=== PATIENT | female | born 1940 | race Caucasian/White ===

== ENCOUNTER 2017-10-27 13:25 | Outpatient (CLI) | payer MEDICARE, OTHER ==
--- NOTE | 2017-10-30 14:29 | MMO ---
BILATERAL SCREENING MAMMOGRAM: INDICATION: Annual exam. COMPARISON: Prior study dated 06/01/15. FINDINGS: The interpretation of this examination was assisted with computer-aided detection. There are scattered fibroglandular elements bilaterally. There are vascular benign-appearing calcifications bilaterally. No new suspicious mass, cluster of microcalcifications, or area of architectural distortion is eviden t. IMPRESSION: BI-RADS category 2 - benign. Recommend routine annual mammographic screening. BIRADS 2: Benign Finding(s) Routine annual screening mammography (for women over age 40) POS: [facility]
== END 2017-10-27 13:26 | disposition home or self-care (01) ==
LOC: SCSMAMMO 13:25
PROVIDERS: ATTEND Obstetrics & Gynecology
DX: Z12.31 Encounter for screening mammogram for malignant neoplasm of breast (principal)
CPT/HCPCS: 77067

== ENCOUNTER 2018-02-12 15:36 | Inpatient (IN) | payer MEDICARE, OTHER ==
[2018-02-12 16:34] LABS: #Eosinphils 0.1 thou/uL (0.0-0.7); #Lymphocytes 1.9 thou/uL (1.20-3.40); #Monocytes 0.6 thou/uL (0.11-0.59); #Neutrophils 3.9 thou/uL (1.40-6.50); %Basophils 0.6 % (0.0-1.0); %Eosinophils 1.8 % (0.0-10.0); %Lymphocytes 28.8 % (21.0-51.0); %Monocytes 8.4 % (0.0-10.0); %Neutrophils 60.5 % (42.0-75.0); Hemoglobin 13.2 g/dL (12.0-16.0); Mean Corpuscular HGB CONC 32.8 g/dL (32.0-36.0); Mean Corpuscular Volume 91.6 fL (78.0-98.0); Mean Platelet Volume 6.2 fL (7.4-10.4); Platelet Count 386 thou/uL (130-400); RBC Distribution Width 11.8 % (11.5-14.5); White Blood Cell (WBC) Count 6.5 thou/uL (4.8-10.8)
[2018-02-12 16:53] LABS: ALT (SGPT) 9 U/L (8-55); AST (SGOT) 15 U/L (5-34); Albumin 4.1 g/dL (3.4-4.8); Alkaline Phosphatase 145 U/L (40-150); Anion Gap 12 mmol/L (10-20); BUN (Urea Nitrogen) 14 mg/dL (9.8-20.1); Bilirubin, Total 0.4 mg/dL (0.2-1.2); CRP (Inflammatory) Less than 0.50 mg/dL (= or < 0.5); Calc. Creatinine Clearance 0 mL/min (70-130); Calcium 9.6 mg/dL (7.8-10.44); Carbon Dioxide 27 mmol/L (23-31); Chloride 99 mmol/L (98-107); Estimated GFR-MDRD 63; Globulin 3.4 g/dL (2.4-3.5); Glucose 100 mg/dL (83-110); Potassium 3.9 mmol/L (3.5-5.1); Protein, Total 7.5 g/dL (6.0-8.3); Sodium 134 mmol/L (136-145)
[2018-02-12] MEDS ORDERED: hydrALAZINE 20 MG/ML VIAL ONE (20:09)
[2018-02-12] MEDS ORDERED: Ondansetron ODT 4 MG TAB PO PRN (21:02)
[2018-02-12] MEDS ORDERED: Acetaminophen 325 MG TAB PO PRN (21:02)
[2018-02-12] MEDS ORDERED: Ondansetron PF 4 MG/2 ML Vial IVP PRN (21:02)
[2018-02-12] MEDS ORDERED: Senokot S 8.6-50 MG TAB PO PRN (21:02)
[2018-02-12 22:25] VITALS: BMI 24.5
[2018-02-12] MEDS ORDERED: Vancomycin HCl 1 GM in Premix Bag 1 BAG IVPB SCH (22:45)
[2018-02-13] MEDS: traMADol HCl 50 MG TAB PO PRN ×4 (00:55→21:31)
[2018-02-13 05:28] LABS: #Eosinphils 0.2 thou/uL (0.0-0.7); #Lymphocytes 1.8 thou/uL (1.20-3.40); #Monocytes 0.5 thou/uL (0.11-0.59); #Neutrophils 2.3 thou/uL (1.40-6.50); %Basophils 0.6 % (0.0-1.0); %Eosinophils 3.4 % (0.0-10.0); %Lymphocytes 37.4 % (21.0-51.0); %Neutrophils 47.6 % (42.0-75.0); Hemoglobin 12.3 g/dL (12.0-16.0); Mean Corpuscular HGB CONC 33.2 g/dL (32.0-36.0); Mean Corpuscular Volume 90.6 fL (78.0-98.0); Mean Platelet Volume 6.2 fL (7.4-10.4); Platelet Count 319 thou/uL (130-400); RBC Distribution Width 11.6 % (11.5-14.5); Red Blood Cell (RBC) Count 4.08 mill/uL (4.20-5.40); White Blood Cell (WBC) Count 4.9 thou/uL (4.8-10.8)
[2018-02-13 05:43] LABS: Anion Gap 11 mmol/L (10-20); BUN (Urea Nitrogen) 10 mg/dL (9.8-20.1); Calc. Creatinine Clearance 81 mL/min (70-130); Calcium 9.4 mg/dL (7.8-10.44); Carbon Dioxide 26 mmol/L (23-31); Chloride 103 mmol/L (98-107); Estimated GFR-MDRD Greater than 90; Glucose 104 mg/dL (83-110); Potassium 3.6 mmol/L (3.5-5.1); Sodium 136 mmol/L (136-145)
--- NOTE | 2018-02-13 07:15 | HP ---
CHIEF COMPLAINT: Pelvic pain. HISTORY OF PRESENT ILLNESS: This is a 78-year-old female with past medical history of hip osteomyelitis, hyperlipidemia, presenting with a chief complaint of pelvic pain. Per the patient, she was seen by Dr. Fernandez and the patient was referred to get an MRI at the sacral region for evaluation of the osteomyelitis. The patient states that she has been having this for the past one and a half weeks prior to this admission and she went for the MRI, which was done on 02/10/2018 and the patient was told to come to our ED after the MRI was reviewed by Dr. Fernandez. The patient said that Dr. Fernandez's clinic has a copy of the MRI and it would be great if we can be able to call Dr. Fernandez's office to get the final report of the MRI if is indeed acute or chronic osteomyelitis. The patient also reports she had surgery to drain and remove abscesses at the base of her vagina in July by Dr. Mehran Reagan on 2017, therefore, the patient had a vaginal abscess around July and then it was drained around 01/09/2018. The patient reports that she has been having urinary symptoms and has been given antibiotics, specifically nitrofurantoin to help with her UTI, which has been diagnosed. The patient has been very compliant with her medications and the patient states that she takes tramadol for pain. Of note, the patient had a right hip replacement in the past and the patient states that she suffered a Staph infection in the joint around that time and had to receive antibiotics. The patient currently denies any fever, chills, palpitation, chest pain, abdominal pain, nausea, vomiting; however, the patient admits to having some subjective fevers and also sacral and pelvic pain. REVIEW OF SYSTEMS: Positive for pelvic and sacral pain, otherwise as documented in the HPI. All other systems were reviewed and are negative. PAST MEDICAL HISTORY: The patient has hypercholesterol. PAST SURGICAL HISTORY: Anal fissure, right hip replacement. PSYCHIATRIC HISTORY: No previous psychiatric history. FAMILY HISTORY: reviewed and noncontributory SOCIAL HISTORY: Patient denies using illicit drug or smoking history. The patient says that she is an occasional drinker. ALLERGIES: Patient is allergic to AMOXICILLIN. CURRENT MEDICATIONS: The patient is on, 1. Atorvastatin 10 mg. 2. Calcium. 3. Tramadol 50 mg. 4. Nitrofurantoin. PHYSICAL EXAMINATION: VITAL SIGNS: The patient's blood pressure is 121/68, heart rate of 75, respiratory rate of 17, temperature of 97.7, O2 saturation of 97%. GENERAL APPEARANCE: The patient is lying in bed, does not appear to be in any acute distress. The patient is speaking in full sentences. HEENT: Normocephalic, atraumatic. Pupils are equally round and react to light. Extraocular movements are intact. No scleral icterus. Mucous membranes are moist. NECK: Trachea is midline. No JVD. Full range of motion, supple. LUNGS: Clear to auscultation bilaterally. No wheeze, no rales, no rhonchi is appreciated. CARDIOVASCULAR: Positive S1, S2, regular rate and rhythm. No murmurs, no gallops or rubs appreciated. ABDOMEN: Soft, nontender, nondistended, obese abdomen, positive bowel sounds in all quadrants. No masses palpated. BACK: The patient has some tenderness at the pelvic region and sacral area. No CVA tenderness. EXTREMITIES: The patient has 5/5 upper extremities and 5/5 lower extremities, good pulses bilaterally in the upper and lower extremities. NEUROLOGIC: Cranial nerves II through XII grossly intact. No neurologic deficits noted. SKIN: Referred to description of a sacral area from a nursing note. As of this point, the patient states that there is severe pain and cannot allow us to move or to observe the sacrum at this time. PSYCHIATRIC: The patient is alert, oriented x3, normal affect, very pleasant. LABORATORY DATA: WBC 6.5, hemoglobin 13.2, hematocrit is 40.3, platelet count is 384. ESR is 9. Sodium is 134, potassium is 3.9, chloride is 99, carbon dioxide of 27, BUN is 12, creatinine is 0.87. AST is 15, ALT is 9. ASSESSMENT AND PLAN: This is a 78-year-old female being admitted for: 1. Questionable osteomyelitis. The patient had an MRI done and MRI was ordered by Dr. Fernandez and today the patient received a phone call to come to the hospital after the MRI was reviewed by Dr. Fernandez, so the patient can be evaluated for chronic osteomyelitis. At this time, we will start the patient on vancomycin IV and we have consulted ID. We will follow up on the patient's MRI report and possibly treat the patient for osteomyelitis if indeed the patient's MRI result is positive for osteomyelitis. 2. History of hyperlipidemia. We will continue the patient on current management. 3. Urinary tract infection. We will continue the patient on her home medication of nitrofurantoin. 3. Deep venous thrombosis and gastrointestinal prophylaxis. MTDD
[2018-02-13] MEDS ORDERED: Artificial Tears 18 DROP/0.9 ML EA EYE PRN (07:50)
[2018-02-13] MEDS ORDERED: Diphenoxylate HCl/Atropine Tablet PO PRN (07:50)
[2018-02-13] MEDS ORDERED: Loratadine 10 MG TAB PO PRN (07:50)
[2018-02-13] MEDS ORDERED: hydrALAZINE 20 MG/ML VIAL SLOW IVP PRN (07:50)
[2018-02-13] MEDS ORDERED: Zolpidem Tartrate 5 MG TAB PO PRN (07:50)
[2018-02-13] MEDS ORDERED: Acetaminophen 500 MG TAB PO PRN (07:50)
[2018-02-13] MEDS ORDERED: Cepastat Lozenges 1 LOZ PO PRN (07:50)
[2018-02-13] MEDS ORDERED: HYDROcodone/Acetaminophen 5/325 mg Tablet PO PRN (07:50)
[2018-02-13] MEDS ORDERED: Sodium Chloride 0.65% Nasal 44 ML BOT EA NARE PRN (07:50)
[2018-02-13] MEDS ORDERED: cloNIDine 0.1 MG TAB PO PRN (07:50)
[2018-02-13] MEDS ORDERED: Diabetic Tussin 200 MG/10 ML UDCUP PO PRN (07:50)
[2018-02-13] MEDS ORDERED: Eucerin (Mineral Oil/Petrolatum,White) 30 gm Jar TOP PRN (07:50)
[2018-02-13] MEDS: Calcium Carbonate 500 MG TAB PO SCH (08:38)
[2018-02-13] MEDS: Aspirin 325 MG TAB PO SCH (08:38)
[2018-02-13] MEDS: Atorvastatin Calcium 20 MG TAB PO SCH (08:39)
[2018-02-13] MEDS: Saccharomyces boulardii 250 MG CAP PO SCH (08:39)
[2018-02-13] MEDS: Lactinex Tablet PO SCH (08:39)
[2018-02-13] MEDS: Polyethylene Glycol 3350 17 GM Packet PO SCH (08:40)
[2018-02-13] MEDS: Famotidine 20 MG TAB PO SCH ×2 (08:40→20:06)
[2018-02-13] MEDS: Calcium Carbonate + Vit D 1 TAB PO SCH (08:40)
[2018-02-13] MEDS: Nitrofurantoin Monohyd/M-Cryst 100 MG CAP PO SCH ×2 (08:40→20:06)
[2018-02-13] MEDS: Heparin 5,000 UNITS/ML VIAL SC SCH ×2 (08:41→20:08)
[2018-02-13] MEDS ORDERED: FLAXSEED OIL 1000 MG PO SCH (09:00)
[2018-02-13] MEDS ORDERED: Aspirin 325 MG TAB PO SCH (09:00)
[2018-02-13] MEDS ORDERED: FLAX SEED OIL 1000 MG PO SCH (09:00)
[2018-02-13] MEDS: Vancomycin HCl 750 MG in Sodium Chloride 0.9% 250 ML 250 ML IVPB SCH ×2 (11:04→22:53)
--- NOTE | 2018-02-13 11:09 | PDOC.PN ---
- Subjective Encounter Start Date: 02/13/18 Encounter Start Time: 07:30 -: old records requested/rev pt has muscle spasm in her right leg, has pain in her hip, no fever, she had MRI done at [facility] per pt - Objective Resuscitation Status: Resuscitation Status FULL:Full Resuscitation MAR Reviewed: Yes Vital Signs & Weight: Vital Signs (12 hours) Temp Pulse Resp BP Pulse Ox 02/13/18 07:21 97.8 F 68 16 176/78 H 96 02/13/18 04:25 97.8 F 64 16 133/69 95 02/13/18 00:35 97.7 F 72 15 158/77 H 95 Weight Weight 143 lb 4.807 oz I&O: 02/12/18 02/13/18 02/14/18 06:59 06:59 05:59 Intake Total 880 Balance 880 Result Diagrams: 02/13/18 04:50 02/13/18 04:50 Phys Exam - Physical Examination Constitutional: NAD HEENT: PERRLA, moist MMs, sclera anicteric Neck: no JVD, supple Respiratory: no wheezing, no rales, no rhonchi Cardiovascular: RRR, no significant murmur, no rub Gastrointestinal: soft, non-tender, no distention, positive bowel sounds Musculoskeletal: no edema, pulses present Neurological: non-focal, normal sensation, moves all 4 limbs Lymphatic: no nodes Psychiatric: normal affect, A&O x 3 Skin: no rash, normal turgor Dx/Plan (1) Pelvic pain Code(s): R10.2 - PELVIC AND PERINEAL PAIN Status: Acute (2) Dyslipidemia Code(s): E78.5 - HYPERLIPIDEMIA, UNSPECIFIED Status: Chronic (3) Osteomyelitis Code(s): M86.9 - OSTEOMYELITIS, UNSPECIFIED Status: Suspected - Plan cont current plan of care * ID consulted, for suspected osteomyelitis, she had MRI at [facility], unable to review, do not know what abnormality she had * currently started on empiric antibiotics * will repeat labs tomorrow * will add diazepam and flexeril for muscle spasm * medication reviewed as below * symptomatic treatment. Review of Systems - Review of Systems Constitutional: negative: fever, chills, sweats, weakness, malaise, other Eyes: negative: Pain, Vision Change, Conjunctivae Inflammation, Eyelid Inflammation, Redness, Other ENT: negative: Ear Pain, Ear Discharge, Nose Pain, Nose Discharge, Nose Congestion, Mouth Pain, Mouth Swelling, Throat Pain, Throat Swelling, Other Respiratory: negative: Cough, Dry, Shortness of Breath, Hemoptysis, SOB with Excertion, Pleuritic Pain, Sputum, Wheezing Cardiovascular: negative: chest pain, palpitations, orthopnea, paroxysmal nocturnal dyspnea, edema, light headedness, other Gastrointestinal: negative: Nausea, Vomiting, Abdominal Pain, Diarrhea, Constipation, Melena, Hematochezia, Other Genitourinary: negative: Dysuria, Frequency, Incontinence, Hematuria, Retention , Other Musculoskeletal: Leg Pain. negative: Neck Pain, Shoulder Pain, Arm Pain, Back Pain, Hand Pain, Foot Pain, Other Skin: negative: Rash, Lesions, [place], Bruising, Other - Medications/Allergies Allergies/Adverse Reactions: Allergies Allergy/AdvReac Type Severity Reaction Status Date / Time amoxicillin Allergy Severe TINGLING/PRICKLY Verified 02/12/18 22:18 FEELING/FELT AWEFUL Medications: Current Medications Acetaminophen (Tylenol) 650 mg PO Q4H PRN PRN Reason: Headache/Fever/Mild Pain (1-3) Hydrocodone Bitart/Acetaminophen ([place] 5/325) 1 tab PO Q4H PRN PRN Reason: Moderate Pain (4-6) Acidophilus (Floranex) 1 tab PO DAILY [facility] Last Admin: 02/13/18 08:39 Dose: 1 tab Artificial Tears (Tears Naturale) 2 drop EA EYE PRN PRN PRN Reason: Dry Eyes Aspirin (Aspirin) 325 mg PO DAILY [facility] Last Admin: 02/13/18 08:38 Dose: 325 mg Atorvastatin Calcium (Lipitor) 20 mg PO DAILY [facility] Last Admin: 02/13/18 08:39 Dose: 20 mg Bisacodyl (Dulcolax) 10 mg PO DAILYPRN PRN PRN Reason: Constipation Calcium Carbonate (Oscal-500) 500 mg PO DAILY [facility] Last Admin: 02/13/18 08:38 Dose: 500 mg Calcium/Vitamin D (Caltrate 600 + Vit D) 1 tab PO DAILY [facility] Last Admin: 02/13/18 08:40 Dose: 1 tab Clonidine (Catapres) 0.1 mg PO Q4H PRN PRN Reason: SBP > ____ Cyclobenzaprine HCl (Flexeril) 10 mg PO TID PRN PRN Reason: Muscle Spasm Diazepam (Valium) 5 mg PO BID [facility] Diphenoxylate HCl/Atropine (Lomotil) 2 tab PO ONE PRN PRN Reason: Diarrhea/Loose Stools Stop: 02/13/18 12:00 Famotidine (Pepcid) 20 mg PO BID [facility] Last Admin: 02/13/18 08:40 Dose: 20 mg Guaifenesin (Robitussin Sf) 200 mg PO Q4H PRN PRN Reason: Cough Heparin Sodium (Porcine) (Heparin) 5,000 units SC BID [facility] Last Admin: 02/13/18 08:41 Dose: 5,000 units Hydralazine HCl (Apresoline) 10 mg SLOW IVP Q4H PRN PRN Reason: SBP > 180 and HR < 70 Vancomycin HCl 750 mg/ Sodium (Chloride) 250 mls @ 250 mls/hr IVPB 1100,2300 [facility] Last Admin: 02/13/18 11:04 Dose: 250 mls Loratadine (Claritin) 10 mg PO DAILYPRN PRN PRN Reason: Sinus Symptoms Mineral Oil/White Petrolatum (Eucerin Cream) 0 gm TOP BIDPRN PRN PRN Reason: Dry Skin Miscellaneous Medication (Pharmacy To Dose) 1 each IVPB PRN PRN PRN Reason: Pharmacy to dose Nitrofurantoin Macrocrystals (Macrobid) 100 mg PO BID [facility] Last Admin: 02/13/18 08:40 Dose: 100 mg Ondansetron HCl (Zofran Odt) 4 mg PO Q6H PRN PRN Reason: Nausea/Vomiting Ondansetron HCl (Zofran) 4 mg IVP Q6H PRN PRN Reason: Nausea/Vomiting Polyethylene Glycol (Miralax) 17 gm PO DAILY [facility] Last Admin: 02/13/18 08:40 Dose: 17 gm Saccharomyces Boulardii (Florastor) 250 mg PO DAILY [facility] Last Admin: 02/13/18 08:39 Dose: 250 mg Senna/Docusate Sodium (Senokot S) 2 tab PO BIDPRN PRN PRN Reason: Constipation Sodium Chloride (Flush - Normal Saline) 10 ml IVF Q12HR PRN PRN Reason: Saline Flush Sodium Chloride (Flush - Normal Saline) 10 ml IVF PRN PRN PRN Reason: Saline Flush Sodium Chloride ([place] Nasal [place] 0.65%) 0 ml EA NARE QIDPRN PRN PRN Reason: Nasal Congestion Throat Lozenges (Cepastat Lozenges) 1 keya PO Q2H PRN PRN Reason: Sore Throat Tramadol HCl (Ultram) 50 mg PO Q4H PRN PRN Reason: Mild Pain 1-3 Last Admin: 02/13/18 00:55 Dose: 50 mg Tramadol HCl (Ultram) 50 mg PO Q6H PRN PRN Reason: Pain Last Admin: 02/13/18 08:41 Dose: 50 mg Zolpidem Tartrate (Ambien) 5 mg PO HSPRN PRN PRN Reason: Insomnia
[2018-02-13] MEDS: Cyclobenzaprine 10 MG TAB PO PRN ×2 (14:15→22:17)
[2018-02-13 17:50] LABS: Bilirubin Negative (Negative); Blood, Urine Trace (Negative); Clarity CLEAR (Clear); Glucose, Urine (Dipstick) Negative (Negative); Leukocyte Negative (Negative); Nitrite Negative (Negative); Protein, Urine (Dipstick) Negative (Neg-Trace); Specific Gravity, Urine 1.005 (1.002-1.036); Urobilinogen 0.2 mg/dL (0.2-1.0)
[2018-02-13 17:51] LABS: Bacteria/HPF None Seen HPF (None Seen); Hyaline Casts/LPF 0-3 HYALINE CAST LPF (0-3 Hyaline); Pathc Cast-AUWi Flag 0.29 (0-2.49); Squamous Epithelial None Seen HPF (0-3); WBC/HPF 0-3 HPF (0-3)
[2018-02-13] MEDS: Diazepam 5 MG TAB PO SCH (20:06)
[2018-02-13] MEDS: Bisacodyl 5 MG TAB PO PRN (21:35)
[2018-02-14 05:14] LABS: #Eosinphils 0.2 thou/uL (0.0-0.7); #Lymphocytes 1.8 thou/uL (1.20-3.40); #Monocytes 0.4 thou/uL (0.11-0.59); #Neutrophils 3.2 thou/uL (1.40-6.50); %Basophils 0.4 % (0.0-1.0); %Lymphocytes 31.9 % (21.0-51.0); %Monocytes 7.6 % (0.0-10.0); %Neutrophils 57.1 % (42.0-75.0); Hemoglobin 12.2 g/dL (12.0-16.0); Mean Corpuscular HGB CONC 32.3 g/dL (32.0-36.0); Mean Corpuscular Hemoglobin 29.3 pg (27.0-31.0); Mean Corpuscular Volume 90.7 fL (78.0-98.0); Mean Platelet Volume 6.2 fL (7.4-10.4); Platelet Count 311 thou/uL (130-400); RBC Distribution Width 11.8 % (11.5-14.5); Red Blood Cell (RBC) Count 4.16 mill/uL (4.20-5.40); White Blood Cell (WBC) Count 5.5 thou/uL (4.8-10.8)
[2018-02-14 05:30] LABS: Anion Gap 11 mmol/L (10-20); BUN (Urea Nitrogen) 9 mg/dL (9.8-20.1); CRP (Inflammatory) Less than 0.50 mg/dL (= or < 0.5); Calc. Creatinine Clearance 79 mL/min (70-130); Calcium 9.2 mg/dL (7.8-10.44); Carbon Dioxide 24 mmol/L (23-31); Chloride 103 mmol/L (98-107); Estimated GFR-MDRD Greater than 90; Glucose 98 mg/dL (83-110); Potassium 3.5 mmol/L (3.5-5.1); Sodium 134 mmol/L (136-145)
[2018-02-14] MEDS: Aspirin 325 MG TAB PO SCH (07:59)
[2018-02-14] MEDS: Polyethylene Glycol 3350 17 GM Packet PO SCH ×2 (08:00→19:55)
[2018-02-14] MEDS: Calcium Carbonate + Vit D 1 TAB PO SCH (08:00)
[2018-02-14] MEDS: Nitrofurantoin Monohyd/M-Cryst 100 MG CAP PO SCH ×2 (08:00→19:55)
[2018-02-14] MEDS: Saccharomyces boulardii 250 MG CAP PO SCH (08:01)
[2018-02-14] MEDS: Calcium Carbonate 500 MG TAB PO SCH (08:01)
[2018-02-14] MEDS: Lactinex Tablet PO SCH (08:01)
[2018-02-14] MEDS: Atorvastatin Calcium 20 MG TAB PO SCH ×2 (08:02→19:55)
[2018-02-14] MEDS: traMADol HCl 50 MG TAB PO PRN ×2 (08:02→18:43)
[2018-02-14] MEDS: Diazepam 5 MG TAB PO SCH ×2 (08:03→19:55)
[2018-02-14] MEDS: Famotidine 20 MG TAB PO SCH ×2 (08:03→19:54)
[2018-02-14] MEDS: Heparin 5,000 UNITS/ML VIAL SC SCH ×2 (08:09→19:55)
[2018-02-14 10:24] LABS: Vancomycin, Trough 7.6 ug/mL
--- NOTE | 2018-02-14 10:35 | PDOC.PN ---
- Subjective Encounter Start Date: 02/14/18 Encounter Start Time: 08:00 Patient seen and examined. No new complaints. No overnight events - Objective Resuscitation Status: Resuscitation Status FULL:Full Resuscitation MAR Reviewed: Yes Vital Signs & Weight: Vital Signs (12 hours) Temp Pulse Resp BP Pulse Ox 02/14/18 07:30 97.9 F 76 18 157/85 H 97 02/14/18 04:00 97.8 F 69 16 124/76 97 02/14/18 00:00 97.9 F 72 16 156/85 H 99 Weight Weight 143 lb 4.807 oz I&O: 02/13/18 02/14/18 02/15/18 07:59 06:59 06:59 Intake Total Output Total Balance Result Diagrams: 02/14/18 04:48 02/14/18 04:48 Phys Exam - Physical Examination Constitutional: NAD HEENT: PERRLA, moist MMs, sclera anicteric Neck: no JVD, supple Respiratory: no wheezing, no rales, no rhonchi Cardiovascular: RRR, no significant murmur, no rub Gastrointestinal: soft, non-tender, no distention, positive bowel sounds Musculoskeletal: no edema, pulses present Neurological: non-focal, normal sensation, moves all 4 limbs Psychiatric: normal affect, A&O x 3 Skin: no rash, normal turgor Dx/Plan (1) Pelvic pain Code(s): R10.2 - PELVIC AND PERINEAL PAIN Status: Acute (2) Dyslipidemia Code(s): E78.5 - HYPERLIPIDEMIA, UNSPECIFIED Status: Chronic (3) Osteomyelitis Code(s): M86.9 - OSTEOMYELITIS, UNSPECIFIED Status: Suspected - Plan cont current plan of care * will try to get MRI report which was done at [facility], to see what abnormality she had. * given normal CRP and ESR, doubfull for any osteomyelitis * Dr Najera on case * medication reviewed as below * symptomatic treatment Review of Systems - Review of Systems ENT: negative: Ear Pain, Ear Discharge, Nose Pain, Nose Discharge, Nose Congestion, Mouth Pain, Mouth Swelling, Throat Pain, Throat Swelling, Other Respiratory: negative: Cough, Dry, Shortness of Breath, Hemoptysis, SOB with Excertion, Pleuritic Pain, Sputum, Wheezing Cardiovascular: negative: chest pain, palpitations, orthopnea, paroxysmal nocturnal dyspnea, edema, light headedness, other Gastrointestinal: negative: Nausea, Vomiting, Abdominal Pain, Diarrhea, Constipation, Melena, Hematochezia, Other Genitourinary: negative: Dysuria, Frequency, Incontinence, Hematuria, Retention , Other Musculoskeletal: negative: Neck Pain, Shoulder Pain, Arm Pain, Back Pain, Hand Pain, Leg Pain, Foot Pain, Other - Medications/Allergies Allergies/Adverse Reactions: Allergies Allergy/AdvReac Type Severity Reaction Status Date / Time amoxicillin Allergy Severe [place]/PRICKLY Verified 02/12/18 22:18 FEELING/FELT AWEFUL Medications: Current Medications Acetaminophen (Tylenol) 650 mg PO Q4H PRN PRN Reason: Headache/Fever/Mild Pain (1-3) Hydrocodone Bitart/Acetaminophen ([place] 5/325) 1 tab PO Q4H PRN PRN Reason: Moderate Pain (4-6) Acidophilus (Floranex) 1 tab PO DAILY [facility] Last Admin: 02/14/18 08:01 Dose: 1 tab Artificial Tears (Tears Naturale) 2 drop EA EYE PRN PRN PRN Reason: Dry Eyes Aspirin (Aspirin) 325 mg PO DAILY [facility] Last Admin: 02/14/18 07:59 Dose: 325 mg Atorvastatin Calcium (Lipitor) 20 mg PO HS [facility] Bisacodyl (Dulcolax) 10 mg PO DAILYPRN PRN PRN Reason: Constipation Last Admin: 02/13/18 21:35 Dose: 10 mg Calcium Carbonate (Oscal-500) 500 mg PO DAILY [facility] Last Admin: 02/14/18 08:01 Dose: 500 mg Calcium/Vitamin D (Caltrate 600 + Vit D) 1 tab PO DAILY [facility] Last Admin: 02/14/18 08:00 Dose: 1 tab Clonidine (Catapres) 0.1 mg PO Q4H PRN PRN Reason: SBP > ____ Cyclobenzaprine HCl (Flexeril) 10 mg PO TID PRN PRN Reason: Muscle Spasm Last Admin: 02/13/18 22:17 Dose: 10 mg Diazepam (Valium) 5 mg PO BID [facility] Last Admin: 02/14/18 08:03 Dose: 5 mg Famotidine (Pepcid) 20 mg PO BID [facility] Last Admin: 02/14/18 08:03 Dose: 20 mg Guaifenesin (Robitussin Sf) 200 mg PO Q4H PRN PRN Reason: Cough Heparin Sodium (Porcine) (Heparin) 5,000 units SC BID [facility] Last Admin: 02/14/18 08:09 Dose: 5,000 units Hydralazine HCl (Apresoline) 10 mg SLOW IVP Q4H PRN PRN Reason: SBP > 180 and HR < 70 Last Admin: 02/13/18 13:27 Dose: 10 mg Vancomycin HCl 1.25 gm/ Sodium (Chloride) 250 mls @ 166.667 mls/hr IVPB 1100, 2300 [facility] Loratadine (Claritin) 10 mg PO DAILYPRN PRN PRN Reason: Sinus Symptoms Mineral Oil/White Petrolatum (Eucerin Cream) 0 gm TOP BIDPRN PRN PRN Reason: Dry Skin Miscellaneous Medication (Pharmacy To Dose) 1 each IVPB PRN PRN PRN Reason: Pharmacy to dose Nitrofurantoin Macrocrystals (Macrobid) 100 mg PO BID [facility] Last Admin: 02/14/18 08:00 Dose: 100 mg Ondansetron HCl (Zofran Odt) 4 mg PO Q6H PRN PRN Reason: Nausea/Vomiting Ondansetron HCl (Zofran) 4 mg IVP Q6H PRN PRN Reason: Nausea/Vomiting Polyethylene Glycol (Miralax) 17 gm PO HS [facility] Saccharomyces Boulardii (Florastor) 250 mg PO DAILY [facility] Last Admin: 02/14/18 08:01 Dose: 250 mg Senna/Docusate Sodium (Senokot S) 2 tab PO BIDPRN PRN PRN Reason: Constipation Sodium Chloride (Flush - Normal Saline) 10 ml IVF Q12HR PRN PRN Reason: Saline Flush Sodium Chloride (Flush - Normal Saline) 10 ml IVF PRN PRN PRN Reason: Saline Flush Sodium Chloride ([place] Nasal [place] 0.65%) 0 ml EA NARE QIDPRN PRN PRN Reason: Nasal Congestion Throat Lozenges (Cepastat Lozenges) 1 keya PO Q2H PRN PRN Reason: Sore Throat Tramadol HCl (Ultram) 50 mg PO Q4H PRN PRN Reason: Mild Pain 1-3 Last Admin: 02/14/18 08:02 Dose: 50 mg Tramadol HCl (Ultram) 50 mg PO Q6H PRN PRN Reason: Pain Last Admin: 02/13/18 21:31 Dose: 50 mg Zolpidem Tartrate (Ambien) 5 mg PO HSPRN PRN PRN Reason: Insomnia
[2018-02-14] MEDS: Vancomycin HCl 1.25 GM in Sodium Chloride 0.9% 250 ML 250 ML IVPB SCH ×2 (12:12→22:27)
--- NOTE | 2018-02-14 18:13 | CON ---
DATE OF CONSULTATION: 02/14/2018 REASON FOR CONSULTATION: Possible sacral osteomyelitis. 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 At that time, the problem was managed with removal of the implant, spacer placement and subsequent revision arthroplasty. She did very well and still doing very well in relationship to the function of the right hip prosthesis. In 08/2017, she noticed a knot and pain in the perineal region, right below vagina introitus. Eventually had evaluation by her MANAGING SUPERVISOR what diagnosed an abscess. There was drainage noticeable. Apparently, patient was given oral antimicrobial therapy without resolution and eventually I think at end of November, she had I&D of the site with healing of the inflammatory process. She does not recall if cultures were taken. If they were, they should be available at [facility] where all the evaluation for this problem was completed. Then, some time at the end of January, she noticed progressively worsening pain in the lower back area around the sacral region which was hindering her ambulation. She denied any headaches, no visual symptoms, sore throat, odynophagia, dysphagia, no ear or nasal symptoms. No neck pain or thoracic spine pain. No dyspnea or cough, no sputum production. No abdominal pain, no genitourinary symptoms reported. No fevers, no chills. No diarrhea or constipation. No joint symptoms. PAST MEDICAL HISTORY: Hyperlipidemia, degenerative arthritis, right hip replacement with MSSA infection and then revision, hip replacement subsequently , with excellent results, vaginal abscess more like in the lower perineal area which was I&D'd by Mehran Reagan. SOCIAL HISTORY: Never a smoker. Lives in [place]. Drinks occasionally. 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 PHYSICAL EXAMINATION: AMOXICILLIN with rash. CURRENT MEDICATIONS: Include Tylenol, [place], Floranex, aspirin, Lipitor, Dulcolax, Catapres, Flexeril, Valium, Pepcid, Apresoline, Claritin, nitrofurantoin, Zofran, Senokot, tramadol and vancomycin. PHYSICAL EXAMINATION: VITAL SIGNS: T-max 98, blood pressure 140/82, pulse 66, respirations 18, O2 sat 97%. SKIN: Shows complete resolution of the perineal changes. She has peripheral IV access and a Burr catheter. No lymphadenopathy. HEENT: Ocular movements are conjugate. Sclerae are white. Pupils are equal. NECK: Supple, no jugular venous distention, no thyromegaly. LUNGS: With symmetric clear breath sounds. HEART: S1, S2, regular rate. No S3 or S4. ABDOMEN: Soft, not distended or tender. No bladder fullness. She does not have any tenderness in the sacral area at this time. EXTREMITIES: No joint inflammatory activity outside the area of involvement. Pulses 1+ in dorsalis pedis. Plantar responses are flexure. No clonus. Strength in upper and lower extremities preserved. NEUROLOGIC: Cognitive function appears to be intact. LABORATORY DATA AND IMAGING DATA: White cell count 6.5, hemoglobin 13, platelets 386, 60% neutrophils. Chemistry with normal findings except for sodium 134. CRP less than 0.5. Urinalysis was fairly unremarkable, 0-3 WBCs. Microbiology; we do not have any samples submitted at this time. The radiology studies were done at the [facility] and the lumbar spine showed some desiccation, some inferior endplate L3 edema seen with broad based disk bulge. There are areas of signal abnormality in the S1, S2 and S3 sacral vertebral bodies with decreased T1 and increased signal on T2 contrast enhanced images. The radiologist mentions the possibility of insufficiency fractures versus metastatic disease not excluded. Obviously, another process such an inflammatory process is to be considered as well. ASSESSMENT: 1. Prior hip infection in 2015, treated with joint removal and protracted antimicrobial therapy as followed by revision which was successful. 2. Recent abscess in the perineal area drained and treated with antimicrobial therapy by her MANAGING SUPERVISOR physician. 3. Progressive worsening pain in the sacral area with the abnormalities seen in the MRI of the lumbosacral spine noted above. 4. Urinary retention with 1200 mL of urine. DISCUSSION: Differential diagnosis includes an inflammatory process of the sacrum with osteomyelitis or malignancy versus fracture. The patient does have significant amount of urinary retention. The reasons for that are not clear at this point in time, although it could be medication induced or another not yet identified neurological, neuropathic problem. Patient may have a lesion in her spine above the levels where the MRI were taken, but that does not seem likely. There is no history of diabetes mellitus. In terms of diagnostic interventions, a guided aspirate or bone biopsy would probably be considered because of the uncertainties present in the diagnosis. The alternate approach would be empiric treatment for an infection with a broad spectrum regimen such as Rocephin and vancomycin for a protracted period of time through a PICC line. We will have to discuss with Radiology the feasibility of a biopsy of the area of involvement and then make a decision. MTDD
[2018-02-15] MEDS: traMADol HCl 50 MG TAB PO PRN (03:30)
[2018-02-15] MEDS: Calcium Carbonate + Vit D 1 TAB PO SCH (08:08)
[2018-02-15] MEDS: Aspirin 325 MG TAB PO SCH (08:08)
[2018-02-15] MEDS: Lactinex Tablet PO SCH (08:08)
[2018-02-15] MEDS: Saccharomyces boulardii 250 MG CAP PO SCH (08:08)
[2018-02-15] MEDS: Nitrofurantoin Monohyd/M-Cryst 100 MG CAP PO SCH ×2 (08:08→19:58)
[2018-02-15] MEDS: Calcium Carbonate 500 MG TAB PO SCH (08:09)
[2018-02-15] MEDS: Heparin 5,000 UNITS/ML VIAL SC SCH ×2 (08:09→19:59)
[2018-02-15] MEDS: Famotidine 20 MG TAB PO SCH ×2 (08:09→19:59)
[2018-02-15] MEDS: Diazepam 5 MG TAB PO SCH ×2 (08:09→19:58)
--- NOTE | 2018-02-15 09:41 | PDOC.PN ---
- Subjective Encounter Start Date: 02/15/18 Encounter Start Time: 08:50 Patient seen and examined. No new complaints. No overnight events - Objective Resuscitation Status: Resuscitation Status FULL:Full Resuscitation MAR Reviewed: Yes Vital Signs & Weight: Vital Signs (12 hours) Temp Pulse Resp BP Pulse Ox 02/15/18 07:08 97.8 F 72 18 123/77 99 02/15/18 04:27 97.8 F 71 16 134/82 96 02/15/18 00:00 98 F 67 16 137/81 97 Weight Weight 143 lb 4.807 oz I&O: 02/14/18 02/15/18 02/16/18 06:59 06:59 06:59 Intake Total 1950 Output Total 1900 Balance 50 Result Diagrams: 02/14/18 04:48 02/14/18 04:48 Phys Exam - Physical Examination Constitutional: NAD HEENT: PERRLA, moist MMs, sclera anicteric Neck: no JVD, supple Respiratory: no wheezing, no rales, no rhonchi Cardiovascular: RRR, no significant murmur, no rub Gastrointestinal: soft, non-tender, no distention, positive bowel sounds Musculoskeletal: no edema, pulses present Neurological: non-focal, normal sensation, moves all 4 limbs Psychiatric: normal affect, A&O x 3 Skin: no rash, normal turgor Dx/Plan (1) Pelvic pain Code(s): R10.2 - PELVIC AND PERINEAL PAIN Status: Acute (2) Dyslipidemia Code(s): E78.5 - HYPERLIPIDEMIA, UNSPECIFIED Status: Chronic (3) Osteomyelitis Code(s): M86.9 - OSTEOMYELITIS, UNSPECIFIED Status: Suspected Comment: sacral area - Plan cont current plan of care, continue antibiotics, administrator social welfare * dr jackson recommendation noted * will change to inpt status * she may need biopsy of the affected area * eventually she will need picc line and fci antibiotics * start PT/OT * medication reviewed as below * symptomatic treatment. Review of Systems - Review of Systems ENT: negative: Ear Pain, Ear Discharge, Nose Pain, Nose Discharge, Nose Congestion, Mouth Pain, Mouth Swelling, Throat Pain, Throat Swelling, Other Respiratory: negative: Cough, Dry, Shortness of Breath, Hemoptysis, SOB with Excertion, Pleuritic Pain, Sputum, Wheezing Cardiovascular: negative: chest pain, palpitations, orthopnea, paroxysmal nocturnal dyspnea, edema, light headedness, other Gastrointestinal: negative: Nausea, Vomiting, Abdominal Pain, Diarrhea, Constipation, Melena, Hematochezia, Other Genitourinary: negative: Dysuria, Frequency, Incontinence, Hematuria, Retention , Other Musculoskeletal: negative: Neck Pain, Shoulder Pain, Arm Pain, Back Pain, Hand Pain, Leg Pain, Foot Pain, Other Skin: negative: Rash, Lesions, Rodrigo, Bruising, Other - Medications/Allergies Allergies/Adverse Reactions: Allergies Allergy/AdvReac Type Severity Reaction Status Date / Time amoxicillin Allergy Severe TINGLING/PRICKLY Verified 02/12/18 22:18 FEELING/FELT AWEFUL Medications: Current Medications Acetaminophen (Tylenol) 650 mg PO Q4H PRN PRN Reason: Headache/Fever/Mild Pain (1-3) Hydrocodone Bitart/Acetaminophen ([place] 5/325) 1 tab PO Q4H PRN PRN Reason: Moderate Pain (4-6) Acidophilus (Floranex) 1 tab PO DAILY [facility] Last Admin: 02/15/18 08:08 Dose: 1 tab Artificial Tears (Tears Naturale) 2 drop EA EYE PRN PRN PRN Reason: Dry Eyes Aspirin (Aspirin) 325 mg PO DAILY [facility] Last Admin: 02/15/18 08:08 Dose: 325 mg Atorvastatin Calcium (Lipitor) 20 mg PO HS [facility] Last Admin: 02/14/18 19:55 Dose: 20 mg Bisacodyl (Dulcolax) 10 mg PO DAILYPRN PRN PRN Reason: Constipation Last Admin: 02/13/18 21:35 Dose: 10 mg Calcium Carbonate (Oscal-500) 500 mg PO DAILY [facility] Last Admin: 02/15/18 08:09 Dose: 500 mg Calcium/Vitamin D (Caltrate 600 + Vit D) 1 tab PO DAILY [facility] Last Admin: 02/15/18 08:08 Dose: 1 tab Clonidine (Catapres) 0.1 mg PO Q4H PRN PRN Reason: SBP > ____ Cyclobenzaprine HCl (Flexeril) 10 mg PO TID PRN PRN Reason: Muscle Spasm Last Admin: 02/13/18 22:17 Dose: 10 mg Diazepam (Valium) 5 mg PO BID [facility] Last Admin: 02/15/18 08:09 Dose: 5 mg Famotidine (Pepcid) 20 mg PO BID [facility] Last Admin: 02/15/18 08:09 Dose: 20 mg Guaifenesin (Robitussin Sf) 200 mg PO Q4H PRN PRN Reason: Cough Heparin Sodium (Porcine) (Heparin) 5,000 units SC BID [facility] Last Admin: 02/15/18 08:09 Dose: 5,000 units Hydralazine HCl (Apresoline) 10 mg SLOW IVP Q4H PRN PRN Reason: SBP > 180 and HR < 70 Last Admin: 02/13/18 13:27 Dose: 10 mg Vancomycin HCl 1.25 gm/ Sodium (Chloride) 250 mls @ 166.667 mls/hr IVPB 1100, 2300 [facility] Last Admin: 02/14/18 22:27 Dose: 250 mls Loratadine (Claritin) 10 mg PO DAILYPRN PRN PRN Reason: Sinus Symptoms Mineral Oil/White Petrolatum (Eucerin Cream) 0 gm TOP BIDPRN PRN PRN Reason: Dry Skin Miscellaneous Medication (Pharmacy To Dose) 1 each IVPB PRN PRN PRN Reason: Pharmacy to dose Nitrofurantoin Macrocrystals (Macrobid) 100 mg PO BID [facility] Last Admin: 02/15/18 08:08 Dose: 100 mg Ondansetron HCl (Zofran Odt) 4 mg PO Q6H PRN PRN Reason: Nausea/Vomiting Ondansetron HCl (Zofran) 4 mg IVP Q6H PRN PRN Reason: Nausea/Vomiting Polyethylene Glycol (Miralax) 17 gm PO HS [facility] Last Admin: 02/14/18 19:55 Dose: 17 gm Saccharomyces Boulardii (Florastor) 250 mg PO DAILY [facility] Last Admin: 02/15/18 08:08 Dose: 250 mg Senna/Docusate Sodium (Senokot S) 2 tab PO BIDPRN PRN PRN Reason: Constipation Sodium Chloride (Flush - Normal Saline) 10 ml IVF Q12HR PRN PRN Reason: Saline Flush Sodium Chloride (Flush - Normal Saline) 10 ml IVF PRN PRN PRN Reason: Saline Flush Sodium Chloride ([place] Nasal [place] 0.65%) 0 ml EA NARE QIDPRN PRN PRN Reason: Nasal Congestion Throat Lozenges (Cepastat Lozenges) 1 keay PO Q2H PRN PRN Reason: Sore Throat Tramadol HCl (Ultram) 50 mg PO Q4H PRN PRN Reason: Mild Pain 1-3 Last Admin: 02/15/18 03:30 Dose: 50 mg Tramadol HCl (Ultram) 50 mg PO Q6H PRN PRN Reason: Pain Last Admin: 02/13/18 21:31 Dose: 50 mg Zolpidem Tartrate (Ambien) 5 mg PO HSPRN PRN PRN Reason: Insomnia
[2018-02-15] MEDS: Vancomycin HCl 1.25 GM in Sodium Chloride 0.9% 250 ML 250 ML IVPB SCH (10:23)
--- NOTE | 2018-02-15 16:39 | PRG ---
DATE OF SERVICE: 02/15/2018 SUBJECTIVE: The patient has felt quite a bit of improvement since admission. She is able to ambulat e without much difficulty. The pain has decreased markedly. She denies any headaches. No shortness of breath. No genitourinary symptoms. She has been afebrile. OBJECTIVE: LUNGS: Clear. HEART: S1, S2, regular rate. ABDOMEN: Soft, not distended or tender. LABORATORY DATA: White cell count 5.5, hemoglobin 12, platelets 311,000. Sodium 134, creatinine 0.6 . Liver profile normal. Microbiology not available. ASSESSMENT: 1. Prior hip infection in 2014, treated with joint removal and protracted IV antimicrobial therapy f ollowed by revision, which was successful. 2. Recent abscess in the perineal area, drained and treated with antimicrobial therapy by PROFESSOR OF COMMUNICATION AND WRITING gertrude krause. 3. Progressively worsening pain in the sacral area with MRI abnormalities, which could be indicative of an inflammatory process. 4. Marked improvement after initiation of antimicrobial therapy. 5. Urinary retention. DISCUSSION: The symptoms might be related to the marked urinary retention. The reason for the marke d urinary retention is not clear at this point in time. Her improvement that was noticeable since ad mission might have been secondary to this finding rather than the antimicrobial therapy, although we do not have confirmation of that and it will be difficult to establish a firm diagnosis of infection short of doing a biopsy, which would probably have a low yield. We will discuss with Dr. Fernandez, but probably we will have to treat her with Rocephin and vancomycin until 03/26/2018 with weekly labs .
[2018-02-15] MEDS: Polyethylene Glycol 3350 17 GM Packet PO SCH (19:57)
[2018-02-15] MEDS: Atorvastatin Calcium 20 MG TAB PO SCH (19:58)
[2018-02-15] MEDS: Bisacodyl 5 MG TAB PO PRN (19:59)
[2018-02-15 23:12] LABS: Vancomycin, Trough 13.6 ug/mL
[2018-02-15] MEDS: Vancomycin HCl 1.5 GM in Sodium Chloride 0.9% 250 ML 300 ML IVPB SCH (23:35)
[2018-02-16] MEDS: Vancomycin HCl 1.25 GM in Sodium Chloride 0.9% 250 ML 250 ML IVPB SCH (06:26)
[2018-02-16] MEDS: Nitrofurantoin Monohyd/M-Cryst 100 MG CAP PO SCH ×2 (08:27→20:55)
[2018-02-16] MEDS: Famotidine 20 MG TAB PO SCH ×2 (08:27→20:55)
[2018-02-16] MEDS: Calcium Carbonate + Vit D 1 TAB PO SCH (08:27)
[2018-02-16] MEDS: Lactinex Tablet PO SCH (08:27)
[2018-02-16] MEDS: Aspirin 325 MG TAB PO SCH (08:27)
[2018-02-16] MEDS: Heparin 5,000 UNITS/ML VIAL SC SCH ×2 (08:28→20:55)
[2018-02-16] MEDS: Saccharomyces boulardii 250 MG CAP PO SCH (08:28)
[2018-02-16] MEDS: Diazepam 5 MG TAB PO SCH ×2 (08:28→20:55)
--- NOTE | 2018-02-16 09:48 | PDOC.PN ---
- Subjective Encounter Start Date: 02/16/18 Encounter Start Time: 08:10 Patient seen and examined. No new complaints. No overnight events - Objective Resuscitation Status: Resuscitation Status FULL:Full Resuscitation MAR Reviewed: Yes Vital Signs & Weight: Vital Signs (12 hours) Temp Pulse Resp BP Pulse Ox 02/16/18 08:00 98.4 F 76 18 152/82 H 96 02/16/18 04:00 98.1 F 77 16 133/84 96 02/15/18 23:38 98.1 F 71 16 126/79 97 Weight Weight 143 lb 4.807 oz I&O: 02/15/18 02/16/18 02/17/18 06:59 06:59 06:59 Intake Total 1950 1770 Output Total 1900 2700 Balance 50 -930 Result Diagrams: 02/14/18 04:48 02/14/18 04:48 Phys Exam - Physical Examination Constitutional: NAD HEENT: PERRLA, moist MMs, sclera anicteric Neck: no JVD, supple Respiratory: no wheezing, no rales, no rhonchi Cardiovascular: RRR, no significant murmur, no rub Gastrointestinal: soft, non-tender, no distention, positive bowel sounds Musculoskeletal: no edema, pulses present Neurological: non-focal, normal sensation, moves all 4 limbs Psychiatric: normal affect, A&O x 3 Skin: no rash, normal turgor Dx/Plan (1) Osteomyelitis Code(s): M86.9 - OSTEOMYELITIS, UNSPECIFIED Status: Acute Comment: sacral area (2) Acute urinary retention Code(s): R33.8 - OTHER RETENTION OF URINE Status: Acute (3) Pelvic pain Code(s): R10.2 - PELVIC AND PERINEAL PAIN Status: Acute (4) Dyslipidemia Code(s): E78.5 - HYPERLIPIDEMIA, UNSPECIFIED Status: Chronic (5) Physical deconditioning Code(s): R53.81 - OTHER MALAISE Status: Acute - Plan cont current plan of care, castro catheter, continue antibiotics, social services coordinator * will consult urology for acute urinary retention * courtesy consult for neurosurgeon . * will need picc line and outpt iv antibiotic arrangement as per dr jackson * medication reviewed as below * symptomatic treatment * she will need placement on discharge Review of Systems - Review of Systems Constitutional: weakness. negative: fever, chills, sweats, malaise, other ENT: negative: Ear Pain, Ear Discharge, Nose Pain, Nose Discharge, Nose Congestion, Mouth Pain, Mouth Swelling, Throat Pain, Throat Swelling, Other Respiratory: negative: Cough, Dry, Shortness of Breath, Hemoptysis, SOB with Excertion, Pleuritic Pain, Sputum, Wheezing Cardiovascular: negative: chest pain, palpitations, orthopnea, paroxysmal nocturnal dyspnea, edema, light headedness, other Gastrointestinal: negative: Nausea, Vomiting, Abdominal Pain, Diarrhea, Constipation, Melena, Hematochezia, Other Genitourinary: negative: Dysuria, Frequency, Incontinence, Hematuria, Retention , Other Musculoskeletal: negative: Neck Pain, Shoulder Pain, Arm Pain, Back Pain, Hand Pain, Leg Pain, Foot Pain, Other Skin: negative: Rash, Lesions, Rodrigo, Bruising, Other - Medications/Allergies Allergies/Adverse Reactions: Allergies Allergy/AdvReac Type Severity Reaction Status Date / Time amoxicillin Allergy Severe TINGLING/PRICKLY Verified 02/12/18 22:18 FEELING/FELT AWEFUL Medications: Current Medications Acetaminophen (Tylenol) 650 mg PO Q4H PRN PRN Reason: Headache/Fever/Mild Pain (1-3) Hydrocodone Bitart/Acetaminophen ([place] 5/325) 1 tab PO Q4H PRN PRN Reason: Moderate Pain (4-6) Acidophilus (Floranex) 1 tab PO DAILY [facility] Last Admin: 02/16/18 08:27 Dose: 1 tab Artificial Tears (Tears Naturale) 2 drop EA EYE PRN PRN PRN Reason: Dry Eyes Aspirin (Aspirin) 325 mg PO DAILY [facility] Last Admin: 02/16/18 08:27 Dose: 325 mg Atorvastatin Calcium (Lipitor) 20 mg PO HS [facility] Last Admin: 02/15/18 19:58 Dose: 20 mg Bisacodyl (Dulcolax) 10 mg PO DAILYPRN PRN PRN Reason: Constipation Last Admin: 02/15/18 19:59 Dose: 10 mg Calcium/Vitamin D (Caltrate 600 + Vit D) 1 tab PO DAILY [facility] Last Admin: 02/16/18 08:27 Dose: 1 tab Clonidine (Catapres) 0.1 mg PO Q4H PRN PRN Reason: SBP > ____ Cyclobenzaprine HCl (Flexeril) 10 mg PO TID PRN PRN Reason: Muscle Spasm Last Admin: 02/13/18 22:17 Dose: 10 mg Diazepam (Valium) 5 mg PO BID [facility] Last Admin: 02/16/18 08:28 Dose: 5 mg Famotidine (Pepcid) 20 mg PO BID [facility] Last Admin: 02/16/18 08:27 Dose: 20 mg Guaifenesin (Robitussin Sf) 200 mg PO Q4H PRN PRN Reason: Cough Heparin Sodium (Porcine) (Heparin) 5,000 units SC BID [facility] Last Admin: 02/16/18 08:28 Dose: 5,000 units Hydralazine HCl (Apresoline) 10 mg SLOW IVP Q4H PRN PRN Reason: SBP > 180 and HR < 70 Last Admin: 02/13/18 13:27 Dose: 10 mg Vancomycin HCl 1.5 gm/ Sodium (Chloride) 300 mls @ 200 mls/hr IVPB 1200,2359 [facility] Last Admin: 02/15/18 23:35 Dose: 300 mls Loratadine (Claritin) 10 mg PO DAILYPRN PRN PRN Reason: Sinus Symptoms Mineral Oil/White Petrolatum (Eucerin Cream) 0 gm TOP BIDPRN PRN PRN Reason: Dry Skin Miscellaneous Medication (Pharmacy To Dose) 1 each IVPB PRN PRN PRN Reason: Pharmacy to dose Nitrofurantoin Macrocrystals (Macrobid) 100 mg PO BID [facility] Last Admin: 02/16/18 08:27 Dose: 100 mg Ondansetron HCl (Zofran Odt) 4 mg PO Q6H PRN PRN Reason: Nausea/Vomiting Ondansetron HCl (Zofran) 4 mg IVP Q6H PRN PRN Reason: Nausea/Vomiting Polyethylene Glycol (Miralax) 17 gm PO HS [facility] Last Admin: 02/15/18 19:57 Dose: 17 gm Saccharomyces Boulardii (Florastor) 250 mg PO DAILY [facility] Last Admin: 02/16/18 08:28 Dose: 250 mg Senna/Docusate Sodium (Senokot S) 2 tab PO BIDPRN PRN PRN Reason: Constipation Sodium Chloride (Flush - Normal Saline) 10 ml IVF Q12HR PRN PRN Reason: Saline Flush Sodium Chloride (Flush - Normal Saline) 10 ml IVF PRN PRN PRN Reason: Saline Flush Sodium Chloride ([place] Nasal [place] 0.65%) 0 ml EA NARE QIDPRN PRN PRN Reason: Nasal Congestion Throat Lozenges (Cepastat Lozenges) 1 keya PO Q2H PRN PRN Reason: Sore Throat Tramadol HCl (Ultram) 50 mg PO Q6H PRN PRN Reason: Pain Last Admin: 02/13/18 21:31 Dose: 50 mg Zolpidem Tartrate (Ambien) 5 mg PO HSPRN PRN PRN Reason: Insomnia
[2018-02-16] MEDS: Vancomycin HCl 1.5 GM in Sodium Chloride 0.9% 250 ML 300 ML IVPB SCH (12:03)
[2018-02-16] MEDS ORDERED: Iopamidol 370 76% 100 ML VIAL ONE (16:13)
--- NOTE | 2018-02-16 17:44 | PRG ---
DATE OF SERVICE: 02/16/2018 SUBJECTIVE: Ms. Gould is feeling well. The pain has resolved after the Burr catheterization. No abdominal pain, no respiratory symptoms. OBJECTIVE: VITAL SIGNS: Normal. LUNGS: Clear. HEART: S1, S2, regular rate. ABDOMEN: Soft. EXTREMITIES: She moves extremities equally. LABORATORY DATA: White cell count 5.5, has not been repeated. Sodium 134. I have discussed the natalia e with Dr. Fernandez and with Dr. Mays with Radiology. The areas of bone marrow infiltration or c hanges noted in the MRI are quite symmetric right and left side, which would be less likely to be see n in an infectious process. Stress fracture or malignancy would be a concern though. At this point, we will do a CT of the pelvis with contrast to see if there is any bone destruction or if there is a ny soft tissue involvement to direct any potential biopsy. After that, then we would consider other areas of involvement including the other parts of her thoracic spine and C-spine in other long bones.
[2018-02-16] MEDS: traMADol HCl 50 MG TAB PO PRN (18:27)
--- NOTE | 2018-02-16 18:54 | CT ---
PELVIS CT WITH IV CONTRAST: 02/16/18 HISTORY: 78-year-old female with history of followup abnormalities on MRI lumbar spine at [facility]. Extensive comminuted fractures involving the sacrum including vertical fractures and horizontal fract ures of the right and left sacral ala as well as a horizontal fracture with minimal displacement thro ugh the S2 vertebral body. There appears to be some presacral edematous changes, nonspecific. IMPRESSION: Extensive, somewhat displaced vertical and horizontal fractures involving the sacrum, particularly th e S1, S2, and S3 levels with a displaced transverse component through the S2 vertebral body. There is severe spinal canal stenosis at the L4-L5. There is no evidence for focal bone destructive lesion. N onspecific presacral fluid or edema POS: H
[2018-02-16] MEDS: Bisacodyl 5 MG TAB PO PRN (20:55)
[2018-02-16] MEDS: Polyethylene Glycol 3350 17 GM Packet PO SCH (20:55)
[2018-02-16] MEDS: Atorvastatin Calcium 20 MG TAB PO SCH (20:55)
[2018-02-17] MEDS: Vancomycin HCl 1.5 GM in Sodium Chloride 0.9% 250 ML 300 ML IVPB SCH ×2 (00:05→12:40)
--- NOTE | 2018-02-17 03:01 | CON ---
DATE OF CONSULTATION: 02/16/2018 HISTORY OF PRESENT ILLNESS: Ms. Gould is a 78-year-old female with past medical history of osteomyelitis of the hip and hyperlipidemia, who presents with pelvic pain. Neurosurgery was consulted with Bryanna to evaluate any neurosurgical intervention. Ms. Gould was seen in our office approximately a week ago where she was complaining of pelvic and low back pain, at that time, which she states has been there for approximately a week. In the office, we sent her for lab work to workup for an infection as well as an MRI of the lumbar spine. Dr. Fernandez reviewed the MRI and sent her to emergency room to get evaluated for Infectious Disease due to findings for a pelvic/sacral abscess /osteomyelitis. Patient has been seen in the emergency department and admitted with Medicine and Infectious Disease treating her. The patient has had urinary tract infection as well as history of a vaginal abscess that was drained in December. Currently, I see Ms. Gould in her hospital room. She states that she is feeling quite well compared to the last couple of weeks. She has a very little pain in her pelvic area today. She has been up walking with physical therapy. She is taking a shower and is moving all 4 extremities well. She denies any radicular symptoms. No numbness or tingling. Overall, she is much improved with treatment for infection as well as UTI and has a catheter in. The patient has had some unexplained urinary retention, which she is getting followup for an outpatient basis. REVIEW OF SYSTEMS: The patient denies any fever or chills. No headache, difficulty swallowing. No change in vision, change in hearing. No nausea or vomiting. No chest pain, no palpitations, no shortness of breath. No diarrhea. She has not had a bowel movement in 3 days. PAST MEDICAL HISTORY: Hypercholesterol. PAST SURGICAL HISTORY: Anal fissure/vaginal abscess, right hip replacement and infection of the hip replacement needing a redo. SOCIAL HISTORY: Patient denies tobacco products, no illicit drug use. She has occasional alcohol. ALLERGIES: AMOXICILLIN. CURRENT MEDICATIONS: Atorvastatin, calcium, tramadol, nitrofurantoin. PHYSICAL EXAMINATION: CONSTITUTIONAL: The patient is alert and oriented x3. She is resting comfortably in her hospital bed. She is in no sign of visible distress. HEENT: Head: Normocephalic, atraumatic. Eyes: Pupils equal, round, reactive to light. Extraocular movements are intact. Hearing is intact. Moist mucous membranes. RESPIRATORY: Normal work of breathing on room air. CARDIOVASCULAR: S1, S2, regular rate and rhythm. EXTREMITIES: The patient is moving all 4 extremities well, she has had 5/5 strength in deltoids, biceps, triceps, wrist extension, hip flexion, knee flexion, knee extension, dorsiflexion, plantar flexion, and EHL. NEUROLOGIC: The patient's cranial nerves II-XII are intact. She is alert and oriented x3. Speech is fluent and spontaneous. Normal fund of knowledge. She has no focal sensory or motor deficits. IMAGING: An MRI of the lumbar was performed at [facility] last week which showed concern for sacral osteomyelitis or a sacral abscess on the pelvis. ASSESSMENT AND PLAN: This is a 78-year-old female with possible osteomyelitis or pelvic abscess. She has a history of vaginal abscess with recent drainage and incision and drainage. She is currently being treated by Dr. Najera in the medical team. She should continue treatment for that process and follow up with Urology for the urinary retention. At this time, there is not a need for neurosurgical intervention. MARK
--- NOTE | 2018-02-17 07:38 | PRG ---
DATE OF SERVICE: 02/17/2018 Ms. Gould was admitted to the hospital last Thursday. 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 A combination of these two things suggested osteomyelitis. Other entities in the differential include metastatic lesions of the sacrum. She has not had significant trauma in the last year. She took a f ew falls caring for her parkinsonian over 1 year ago. Ms. Gould did not have much in the way of imaging over the weekend, even into the early part of the week. As metastatic lesion or osteomyelitis were on the differential, I imagine imaging of the lung moraes and the abdomen in addition to the pelvic scan that was already done might be worthwhile. Her C-reactive protein and sed rate were significantly elevated as an outpatient and I do believe her hi story of osteomyelitis and recent pelvic abscess issues make infection of the sacrum highly likely. She was treated with oral antibiotics for her perineal infection already which could have lowered her white count, but that treatment with not likely to be effective for osteomyelitis. There is no surgical intervention that I can offer her and this problem will have to be investigated thoroughly and managed. Consideration could be given to a CT-guided bone biopsy for both culture and histopathology. But again neurosurgical intervention is not warranted. This was explained extensiv naresh to the patient, both last week and today.
[2018-02-17] MEDS: Aspirin 325 MG TAB PO SCH (08:42)
[2018-02-17] MEDS: Famotidine 20 MG TAB PO SCH ×2 (08:43→21:17)
[2018-02-17] MEDS: Calcium Carbonate + Vit D 1 TAB PO SCH (08:43)
[2018-02-17] MEDS: Saccharomyces boulardii 250 MG CAP PO SCH (08:44)
[2018-02-17] MEDS: traMADol HCl 50 MG TAB PO PRN (08:45)
[2018-02-17] MEDS: Nitrofurantoin Monohyd/M-Cryst 100 MG CAP PO SCH ×2 (08:45→21:19)
[2018-02-17] MEDS: Diazepam 5 MG TAB PO SCH ×2 (08:47→21:17)
[2018-02-17] MEDS: Heparin 5,000 UNITS/ML VIAL SC SCH ×2 (08:48→21:19)
[2018-02-17] MEDS: Lactinex Tablet PO SCH (08:48)
--- NOTE | 2018-02-17 09:53 | PDOC.PN ---
- Subjective Encounter Start Date: 02/17/18 Encounter Start Time: 07:45 Patient seen and examined. she has no BM since admission. No overnight events - Objective Resuscitation Status: Resuscitation Status FULL:Full Resuscitation MAR Reviewed: Yes Vital Signs & Weight: Vital Signs (12 hours) Temp Pulse Resp BP Pulse Ox 02/17/18 07:25 97.9 F 71 16 127/92 H 96 02/17/18 04:16 97.9 F 69 18 147/84 H 98 02/17/18 00:31 97.6 F 71 18 152/80 H 97 Weight Weight 143 lb 4.807 oz I&O: 02/16/18 02/17/18 02/18/18 06:59 06:59 06:59 Intake Total 1770 2370 Output Total 2700 2925 Balance -930 -555 Result Diagrams: 02/14/18 04:48 02/14/18 04:48 Radiology Reviewed by me: Yes (CT pelvis noted) Phys Exam - Physical Examination Constitutional: NAD HEENT: PERRLA, moist MMs, sclera anicteric Neck: no JVD, supple Respiratory: no wheezing, no rales, no rhonchi Cardiovascular: RRR, no significant murmur, no rub Gastrointestinal: soft, non-tender, no distention, positive bowel sounds Musculoskeletal: no edema, pulses present Neurological: non-focal, normal sensation, moves all 4 limbs Psychiatric: normal affect, A&O x 3 Skin: no rash, normal turgor Dx/Plan (1) Sacral fracture, closed Code(s): S32.10XA - UNSP FRACTURE OF SACRUM, INIT ENCNTR FOR CLOSED FRACTURE Status: Acute (2) Osteomyelitis Code(s): M86.9 - OSTEOMYELITIS, UNSPECIFIED Status: Suspected Comment: sacral area (3) Acute urinary retention Code(s): R33.8 - OTHER RETENTION OF URINE Status: Acute (4) Pelvic pain Code(s): R10.2 - PELVIC AND PERINEAL PAIN Status: Acute (5) Dyslipidemia Code(s): E78.5 - HYPERLIPIDEMIA, UNSPECIFIED Status: Chronic (6) Physical deconditioning Code(s): R53.81 - OTHER MALAISE Status: Acute (7) Constipation Code(s): K59.00 - CONSTIPATION, UNSPECIFIED Status: Acute - Plan cont current plan of care, continue antibiotics, PT/OT, home health care social worker * spoke with urology, recommended to leave castro catheter on discharge and voiding trial at rehab in 1 week * outpt urology follow up * dr jackson to decide IV antibiotics needed on discharge or not, based on current CT pelvis finding * medication reviewed as below * symptomatic treatment. * fleet enema and miralax bid * pt has approval to go to rehab tomorrow Review of Systems - Review of Systems ENT: negative: Ear Pain, Ear Discharge, Nose Pain, Nose Discharge, Nose Congestion, Mouth Pain, Mouth Swelling, Throat Pain, Throat Swelling, Other Respiratory: negative: Cough, Dry, Shortness of Breath, Hemoptysis, SOB with Excertion, Pleuritic Pain, Sputum, Wheezing Cardiovascular: negative: chest pain, palpitations, orthopnea, paroxysmal nocturnal dyspnea, edema, light headedness, other Gastrointestinal: Constipation. negative: Nausea, Vomiting, Abdominal Pain, Diarrhea, Melena, Hematochezia, Other Genitourinary: negative: Dysuria, Frequency, Incontinence, Hematuria, Retention , Other Musculoskeletal: negative: Neck Pain, Shoulder Pain, Arm Pain, Back Pain, Hand Pain, Leg Pain, Foot Pain, Other Skin: negative: Rash, Lesions, Rodrigo, Bruising, Other - Medications/Allergies Allergies/Adverse Reactions: Allergies Allergy/AdvReac Type Severity Reaction Status Date / Time amoxicillin Allergy Severe TINGLING/PRICKLY Verified 02/12/18 22:18 FEELING/FELT AWEFUL Medications: Current Medications Acetaminophen (Tylenol) 650 mg PO Q4H PRN PRN Reason: Headache/Fever/Mild Pain (1-3) Hydrocodone Bitart/Acetaminophen ([place] 5/325) 1 tab PO Q4H PRN PRN Reason: Moderate Pain (4-6) Acidophilus (Floranex) 1 tab PO DAILY [facility] Last Admin: 02/17/18 08:48 Dose: 1 tab Artificial Tears (Tears Naturale) 2 drop EA EYE PRN PRN PRN Reason: Dry Eyes Aspirin (Aspirin) 325 mg PO DAILY [facility] Last Admin: 02/17/18 08:42 Dose: 325 mg Atorvastatin Calcium (Lipitor) 20 mg PO HS [facility] Last Admin: 02/16/18 20:55 Dose: 20 mg Bisacodyl (Dulcolax) 10 mg PO DAILYPRN PRN PRN Reason: Constipation Last Admin: 02/16/18 20:55 Dose: 10 mg Calcium/Vitamin D (Caltrate 600 + Vit D) 1 tab PO DAILY [facility] Last Admin: 02/17/18 08:43 Dose: 1 tab Clonidine (Catapres) 0.1 mg PO Q4H PRN PRN Reason: SBP > ____ Cyclobenzaprine HCl (Flexeril) 10 mg PO TID PRN PRN Reason: Muscle Spasm Last Admin: 02/13/18 22:17 Dose: 10 mg Diazepam (Valium) 5 mg PO BID [facility] Last Admin: 02/17/18 08:47 Dose: 5 mg Famotidine (Pepcid) 20 mg PO BID [facility] Last Admin: 02/17/18 08:43 Dose: 20 mg Guaifenesin (Robitussin Sf) 200 mg PO Q4H PRN PRN Reason: Cough Heparin Sodium (Porcine) (Heparin) 5,000 units SC BID [facility] Last Admin: 02/17/18 08:48 Dose: 5,000 units Hydralazine HCl (Apresoline) 10 mg SLOW IVP Q4H PRN PRN Reason: SBP > 180 and HR < 70 Last Admin: 02/13/18 13:27 Dose: 10 mg Vancomycin HCl 1.5 gm/ Sodium (Chloride) 300 mls @ 200 mls/hr IVPB 1200,2359 [facility] Last Admin: 02/17/18 00:05 Dose: 300 mls Loratadine (Claritin) 10 mg PO DAILYPRN PRN PRN Reason: Sinus Symptoms Mineral Oil/White Petrolatum (Eucerin Cream) 0 gm TOP BIDPRN PRN PRN Reason: Dry Skin Miscellaneous Medication (Pharmacy To Dose) 1 each IVPB PRN PRN PRN Reason: Pharmacy to dose Nitrofurantoin Macrocrystals (Macrobid) 100 mg PO BID [facility] Last Admin: 02/17/18 08:45 Dose: 100 mg Ondansetron HCl (Zofran Odt) 4 mg PO Q6H PRN PRN Reason: Nausea/Vomiting Ondansetron HCl (Zofran) 4 mg IVP Q6H PRN PRN Reason: Nausea/Vomiting Polyethylene Glycol (Miralax) 17 gm PO HS [facility] Last Admin: 02/16/18 20:55 Dose: 17 gm Saccharomyces Boulardii (Florastor) 250 mg PO DAILY [facility] Last Admin: 02/17/18 08:44 Dose: 250 mg Senna/Docusate Sodium (Senokot S) 2 tab PO BIDPRN PRN PRN Reason: Constipation Last Admin: 02/16/18 18:34 Dose: 2 tab Sodium Chloride (Flush - Normal Saline) 10 ml IVF Q12HR PRN PRN Reason: Saline Flush Sodium Chloride (Flush - Normal Saline) 10 ml IVF PRN PRN PRN Reason: Saline Flush Sodium Chloride ([place] Nasal [place] 0.65%) 0 ml EA NARE QIDPRN PRN PRN Reason: Nasal Congestion Throat Lozenges (Cepastat Lozenges) 1 keya PO Q2H PRN PRN Reason: Sore Throat Tramadol HCl (Ultram) 50 mg PO Q6H PRN PRN Reason: Pain Last Admin: 02/17/18 08:45 Dose: 50 mg Zolpidem Tartrate (Ambien) 5 mg PO HSPRN PRN PRN Reason: Insomnia
[2018-02-17] MEDS ORDERED: Fleet Enema 133 ML BOT PR SCH (10:30)
--- NOTE | 2018-02-17 17:45 | PRG ---
DATE OF SERVICE: 02/17/2018 SUBJECTIVE: Feeling better, minimal pain in the lower back area. Awake, alert, oriented. No respir atory symptoms or abdominal pain. No diarrhea. OBJECTIVE: VITAL SIGNS: Afebrile. BP 120/77, pulse 72. LUNGS: Clear. HEART: S1, S2, regular rate. ABDOMEN: Soft. Mild tenderness in the sacral area. The Burr catheter is in place. LABORATORY DATA: White cell count 5.5. Chemistry has not been repeated. CRP less than 0.5. The pe is CT scan demonstrates extensive displaced vertical and horizontal fractures involving the sacrum, particularly the S1, S2 and S3 levels with displaced transverse component of the S2 vertebral body w ith a spinal canal stenosis at L4-L5. No focal destructive lesion. ASSESSMENT AND DISCUSSION: Prior hip infection, recent abscess in perineal area, worsening pain, sac ral area abnormalities in the MRI of lumbosacral spine and urinary retention and now the CT findings, which are consistent with multiple fractures with some spinal stenosis. The most likely reason for the patient's problems is the sacral fractures, which can be associated with urinary retention. It i s frequently seen in patients who have skiing accidents. I would recommend discontinuation of antimi crobial therapy. I think it is unlikely that she has an infectious complication and this probably sh ould be managed conservatively. Eventually, she should recover the urinary function.
[2018-02-17] MEDS: Polyethylene Glycol 3350 17 GM Packet PO SCH (21:18)
[2018-02-17] MEDS: Atorvastatin Calcium 20 MG TAB PO SCH (21:18)
[2018-02-18] MEDS: Heparin 5,000 UNITS/ML VIAL SC SCH (08:15)
[2018-02-18] MEDS: traMADol HCl 50 MG TAB PO PRN ×2 (08:15→14:48)
[2018-02-18] MEDS: Saccharomyces boulardii 250 MG CAP PO SCH (08:16)
[2018-02-18] MEDS: Aspirin 325 MG TAB PO SCH (08:16)
[2018-02-18] MEDS: Diazepam 5 MG TAB PO SCH (08:16)
[2018-02-18] MEDS: Nitrofurantoin Monohyd/M-Cryst 100 MG CAP PO SCH (08:16)
[2018-02-18] MEDS: Polyethylene Glycol 3350 17 GM Packet PO SCH (08:17)
[2018-02-18] MEDS: Calcium Carbonate + Vit D 1 TAB PO SCH (08:17)
[2018-02-18] MEDS: Famotidine 20 MG TAB PO SCH (08:17)
[2018-02-18] MEDS: Lactinex Tablet PO SCH (08:17)
--- NOTE | 2018-02-18 09:59 | PDOC.PN ---
- Subjective Encounter Start Date: 02/18/18 Encounter Start Time: 07:50 Patient seen and examined. No new complaints. No overnight events - Objective Resuscitation Status: Resuscitation Status FULL:Full Resuscitation MAR Reviewed: Yes Vital Signs & Weight: Vital Signs (12 hours) Temp Pulse Resp BP Pulse Ox 02/18/18 07:08 97.7 F 77 16 159/93 H 99 02/18/18 03:55 97.9 F 79 18 151/79 H 100 02/17/18 23:33 97.4 F L 74 18 145/85 H 98 Weight Weight 143 lb 4.807 oz I&O: 02/17/18 02/18/18 02/19/18 06:59 06:59 06:59 Intake Total 2370 1400 1200 Output Total 2925 850 2100 Balance -555 550 -900 Result Diagrams: 02/14/18 04:48 02/14/18 04:48 Phys Exam - Physical Examination Constitutional: NAD HEENT: PERRLA, moist MMs, sclera anicteric Neck: no JVD, supple Respiratory: no wheezing, no rales, no rhonchi Cardiovascular: RRR, no significant murmur, no rub Gastrointestinal: soft, non-tender, no distention, positive bowel sounds Musculoskeletal: no edema, pulses present Neurological: non-focal, normal sensation, moves all 4 limbs Psychiatric: normal affect, A&O x 3 Skin: no rash, normal turgor Dx/Plan (1) Sacral fracture, closed Code(s): S32.10XA - UNSP FRACTURE OF SACRUM, INIT ENCNTR FOR CLOSED FRACTURE Status: Acute (2) Osteomyelitis Code(s): M86.9 - OSTEOMYELITIS, UNSPECIFIED Status: Ruled-out Comment: sacral area, no osteomyelitis and ruled out (3) Acute urinary retention Code(s): R33.8 - OTHER RETENTION OF URINE Status: Acute (4) Pelvic pain Code(s): R10.2 - PELVIC AND PERINEAL PAIN Status: Resolved (5) Dyslipidemia Code(s): E78.5 - HYPERLIPIDEMIA, UNSPECIFIED Status: Chronic (6) Physical deconditioning Code(s): R53.81 - OTHER MALAISE Status: Acute (7) Constipation Code(s): K59.00 - CONSTIPATION, UNSPECIFIED Status: Acute - Plan cont current plan of care, PT/OT, aids social worker * pt prefer to go to rehab * will ask neurosurgeon if anything can require for her sacral fracture and lumbar stenosis. * antibiotics discontinued and osteomyelitis duled out * medication reviewed as below * symptomatic treatment Review of Systems - Review of Systems ENT: negative: Ear Pain, Ear Discharge, Nose Pain, Nose Discharge, Nose Congestion, Mouth Pain, Mouth Swelling, Throat Pain, Throat Swelling, Other Respiratory: negative: Cough, Dry, Shortness of Breath, Hemoptysis, SOB with Excertion, Pleuritic Pain, Sputum, Wheezing Cardiovascular: negative: chest pain, palpitations, orthopnea, paroxysmal nocturnal dyspnea, edema, light headedness, other Gastrointestinal: negative: Nausea, Vomiting, Abdominal Pain, Diarrhea, Constipation, Melena, Hematochezia, Other Genitourinary: negative: Dysuria, Frequency, Incontinence, Hematuria, Retention , Other Musculoskeletal: negative: Neck Pain, Shoulder Pain, Arm Pain, Back Pain, Hand Pain, Leg Pain, Foot Pain, Other Skin: negative: Rash, Lesions, Rodrigo, Bruising, Other - Medications/Allergies Allergies/Adverse Reactions: Allergies Allergy/AdvReac Type Severity Reaction Status Date / Time amoxicillin Allergy Severe TINGLING/PRICKLY Verified 02/12/18 22:18 FEELING/FELT AWEFUL Medications: Current Medications Acetaminophen (Tylenol) 650 mg PO Q4H PRN PRN Reason: Headache/Fever/Mild Pain (1-3) Hydrocodone Bitart/Acetaminophen ([place] 5/325) 1 tab PO Q4H PRN PRN Reason: Moderate Pain (4-6) Acidophilus (Floranex) 1 tab PO DAILY [facility] Last Admin: 02/18/18 08:17 Dose: 1 tab Artificial Tears (Tears Naturale) 2 drop EA EYE PRN PRN PRN Reason: Dry Eyes Aspirin (Aspirin) 325 mg PO DAILY [facility] Last Admin: 02/18/18 08:16 Dose: 325 mg Atorvastatin Calcium (Lipitor) 20 mg PO HS [facility] Last Admin: 02/17/18 21:18 Dose: 20 mg Bisacodyl (Dulcolax) 10 mg PO DAILYPRN PRN PRN Reason: Constipation Last Admin: 02/16/18 20:55 Dose: 10 mg Calcium/Vitamin D (Caltrate 600 + Vit D) 1 tab PO DAILY [facility] Last Admin: 02/18/18 08:17 Dose: 1 tab Clonidine (Catapres) 0.1 mg PO Q4H PRN PRN Reason: SBP > ____ Cyclobenzaprine HCl (Flexeril) 10 mg PO TID PRN PRN Reason: Muscle Spasm Last Admin: 02/13/18 22:17 Dose: 10 mg Diazepam (Valium) 5 mg PO BID [facility] Last Admin: 02/18/18 08:16 Dose: 5 mg Famotidine (Pepcid) 20 mg PO BID [facility] Last Admin: 02/18/18 08:17 Dose: 20 mg Guaifenesin (Robitussin Sf) 200 mg PO Q4H PRN PRN Reason: Cough Heparin Sodium (Porcine) (Heparin) 5,000 units SC BID [facility] Last Admin: 02/18/18 08:15 Dose: 5,000 units Hydralazine HCl (Apresoline) 10 mg SLOW IVP Q4H PRN PRN Reason: SBP > 180 and HR < 70 Last Admin: 02/13/18 13:27 Dose: 10 mg Loratadine (Claritin) 10 mg PO DAILYPRN PRN PRN Reason: Sinus Symptoms Mineral Oil/White Petrolatum (Eucerin Cream) 0 gm TOP BIDPRN PRN PRN Reason: Dry Skin Miscellaneous Medication (Pharmacy To Dose) 1 each IVPB PRN PRN PRN Reason: Pharmacy to dose Nitrofurantoin Macrocrystals (Macrobid) 100 mg PO BID [facility] Last Admin: 02/18/18 08:16 Dose: 100 mg Ondansetron HCl (Zofran Odt) 4 mg PO Q6H PRN PRN Reason: Nausea/Vomiting Ondansetron HCl (Zofran) 4 mg IVP Q6H PRN PRN Reason: Nausea/Vomiting Polyethylene Glycol (Miralax) 17 gm PO BID [facility] Last Admin: 02/18/18 08:17 Dose: Not Given Saccharomyces Boulardii (Florastor) 250 mg PO DAILY [facility] Last Admin: 02/18/18 08:16 Dose: 250 mg Senna/Docusate Sodium (Senokot S) 2 tab PO BIDPRN PRN PRN Reason: Constipation Last Admin: 02/16/18 18:34 Dose: 2 tab Sodium Chloride (Flush - Normal Saline) 10 ml IVF Q12HR PRN PRN Reason: Saline Flush Sodium Chloride (Flush - Normal Saline) 10 ml IVF PRN PRN PRN Reason: Saline Flush Sodium Chloride ([place] Nasal [place] 0.65%) 0 ml EA NARE QIDPRN PRN PRN Reason: Nasal Congestion Throat Lozenges (Cepastat Lozenges) 1 keya PO Q2H PRN PRN Reason: Sore Throat Tramadol HCl (Ultram) 50 mg PO Q6H PRN PRN Reason: Pain Last Admin: 02/18/18 08:15 Dose: 50 mg Zolpidem Tartrate (Ambien) 5 mg PO HSPRN PRN PRN Reason: Insomnia
[2018-02-18 11:54] VITALS: BP 124/77; TEMP 97.2
--- NOTE | 2018-02-18 14:05 | DIS ---
PRIMARY CARE PHYSICIAN: Dr. Mynor Mike DATE OF ADMISSION: 02/15/2018 DATE OF DISCHARGE: 02/18/2018 DISCHARGE DISPOSITION: Senior Living Unit. PRIMARY DISCHARGE DIAGNOSES: 1. Sacral fracture. 2. Acute urinary retention. 3. Constipation. 4. Physical deconditioning. SECONDARY DISCHARGE DIAGNOSIS: Dyslipidemia. PRIMARY PROCEDURE/OPERATION: None. RADIOLOGICAL INVESTIGATION: Pelvis CT scan showed horizontal and vertical of sacral fracture as well as lumbar stenosis. SIGNIFICANT LABORATORY DATA: WBC 5.6, 5.5, hemoglobin 12.2, platelet 311. ESR 9. Sodium 134, potas sium 3.5, BUN 9, creatinine 0.60, calcium 9.2. LFT normal. CRP less than 0.50. Urinalysis normal. DISCHARGE MEDICATIONS: Tylenol #3 1-2 tablets q.6 hourly p.r.n., Flexeril 10 mg t.i.d. p.r.n., trama dol 50 mg q.6 hours p.r.n., MiraLax 17 grams p.o. daily, Macrobid 100 mg p.o. b.i.d., Lutein 1 tablet daily, flaxseed 1000 mg p.o. daily, calcium 1 tablet daily, Lipitor 20 mg p.o. at bedtime. CONTRAINDICATIONS: None. CODE STATUS: FULL CODE. INPATIENT CONSULTANTS: Dr. Najera was following while in hospital. Dr. Fernandez was consulted while in hospital. TEST RESULTS PENDING ON DISCHARGE: None. ALLERGIES: AMOXICILLIN. DISCHARGE PLAN: Post hospital, the patient will follow up with primary care physician and neurosurge on as instructed. HOSPITAL COURSE: A 78-year-old female who had an outpatient basis MRI of pelvis which was suspected for osteomyelitis. That MRI was done at [facility]. Once the MRI done and resul t was obtained at that point neurosurgeon called her to come to emergency room for evaluation. In th e emergency room, the patient was complaining of sacral pain as well as hip pain and she was having m uscle spasm that we treated with diazepam and Flexeril with significant improvement. As that was aquiles pected for osteomyelitis of sacrum and that is why patient was empirically treated with antibiotic . Dr. Najera was consulted. Dr. Najera [facility] and he revi ewed MRI. This patient surprisingly had no leukocytosis and ESR and CRP was normal, so suspicion for infection was low. The patient had CT pelvis, which showed a sacral fracture, but without any bony destruction. At that point, we discontinued antibiotic therapy and we decided to treat symptomatical ly. I spoke with the neurosurgeon about her sacral fracture and lumbar stenosis, but at this point t osman do not have any new recommendation and she needs PT, OT because of her physical deconditioning. While in hospital, she had constipation that was treated with Fleet enema. While in the hospital she had major urinary retention with urine output 1.2 liter after Burr catheterization. I spoke with Kay pierson and they recommended to leave Burr catheter in upon discharge and outpatient voiding trial in 1 week as well as outpatient urology followup. At this point, patient is medically stable. Discharge medication reconciliation done. The patient is seen and examined at bedside today. Please see my progress note from today. Total time spent on discharge today was 31 minutes.
== END 2018-02-18 15:59 | DRG 543 ==
LOC: ERS 15:36 → SURG A 21:49 → OBSVTOIN 02-15 07:23
PROVIDERS: ADMIT Family Medicine; ATTEND Family Medicine
DX: M84.48XA Pathological fracture, other site, initial encounter for fracture (principal); M46.28 Osteomyelitis of vertebra, sacral and sacrococcygeal region; N39.0 Urinary tract infection, site not specified; R33.9 Retention of urine, unspecified; K60.2 Anal fissure, unspecified; Z96.641 Presence of right artificial hip joint; E78.5 Hyperlipidemia, unspecified; Z88.0 Allergy status to penicillin; Z79.899 Other long term (current) drug therapy; Z79.2 Long term (current) use of antibiotics; K59.00 Constipation, unspecified; M48.061 Spinal stenosis, lumbar region without neurogenic claudication; Z79.891 Long term (current) use of opiate analgesic; R53.81 Other malaise
CPT/HCPCS: 36415; 72193; 80048; 80053; 80202; 81001; 85025; 85652; 86140; 96374; G8978-GP-CJ; G8979-GP-CI; G8987-GO-CK; G8988-GO-CI; J0360; J1644; J3370; J7050

== ENCOUNTER 2018-10-29 08:53 | Outpatient (CLI) | payer MEDICARE, OTHER ==
--- NOTE | 2018-10-29 10:06 | MMO ---
Bilateral MAMMO Bilat Screen [facility]. CLINICAL HISTORY: Patient is 78 years old and is seen for screening. The patient has no family history of breast cancer. The patient has no personal history of cancer. The patient has a history of right needle biopsy in 1989 - benign. VIEWS: The views performed were: bilateral craniocaudal with tomosynthesis and bilateral mediolateral oblique with tomosynthesis. FILMS COMPARED: The present examination has been compared to prior imaging studies performed at [facility] on 02/13/2011, 05/30/2014, 06/01/2015 and 08/01/2016. MAMMOGRAM FINDINGS: The breasts are almost entirely fat. There are stable benign appearing calcifications seen in both breasts. There are no suspicious masses, suspicious calcifications, or new areas of architectural distortion. IMPRESSION: THERE IS NO MAMMOGRAPHIC EVIDENCE OF MALIGNANCY. A ROUTINE FOLLOW-UP MAMMOGRAM IN 1 YEAR IS RECOMMENDED. THE RESULTS OF THIS EXAM WERE SENT TO THE PATIENT. ACR BI-RADS Category 2 - Benign finding MAMMOGRAPHY NOTE: 1. A negative mammogram report should not delay a biopsy if a dominant of clinically suspicious mass is present. 2. Approximately 10% to 15% of breast cancers are not detected by mammography. 3. Adenosis and dense breasts may obscure an underlying neoplasm. Reported by: VENU ARAYA MD Electonically Signed: [id number]
== END 2018-10-29 08:54 | disposition home or self-care (01) ==
LOC: BICMAMMO 08:53
PROVIDERS: ATTEND Obstetrics & Gynecology
DX: Z12.31 Encounter for screening mammogram for malignant neoplasm of breast (principal)
CPT/HCPCS: 77063; 77067

== ENCOUNTER 2019-01-24 15:40 | Day surgery (SDC) | payer MEDICARE, OTHER ==
[2019-01-24] MEDS ORDERED: Phenylephrine 2.5% Ophth Soln 5 ML BOT ONE (16:13)
[2019-01-24] MEDS ORDERED: Cyclopentolate 1% Opth Drop 2 ML BOT ONE (16:13)
[2019-01-24] MEDS ORDERED: EPINEPHrine 0.3 MG in Ophthalmic Irrigation Solution 500 ML FS SCH (16:22)
[2019-01-24] MEDS ORDERED: Midazolam HCl 2 mg/2 ml Vial ONE (18:49)
[2019-01-24] MEDS ORDERED: Fentanyl 100 MCG/2 ML VIAL ONE (18:49)
--- NOTE | 2019-01-25 08:47 | OP ---
DATE OF PROCEDURE: 01/24/2019 PRINCIPAL PREOPERATIVE DIAGNOSIS: Macula-involving rhegmatogenous retinal detachment, right eye. POSTOPERATIVE DIAGNOSIS: Macula-involving rhegmatogenous retinal detachment, right eye. NAME OF PROCEDURES PERFORMED: 1. 25-gauge pars plana vitrectomy, right eye. 2. Retinal detachment repair, right eye. 3. Endolaser, right eye. 4. 15% SF6, right eye. ESTIMATED BLOOD LOSS: None. SPECIMENS REMOVED: None. COMPLICATIONS: None. ANESTHESIA: MAC with retrobulbar block. SUMMARY OF THE OPERATION: The patient was identified in the preoperative holding area. The correct eye being the right eye was marked for surgery. The patient was taken to the operating room, where MAC anesthesia was induced. A retrobulbar block was administered to the right eye. The block consisted of 1:1 ratio of 4% lidocaine and 0.75% Marcaine. A total of 5 mL was administered. The right eye was then prepped and draped in usual sterile fashion for surgery. A wire lid speculum was placed. A standard 25-gauge pars plana vitrectomy platform was fashioned with trocars placed approximately from the limbus. The infusion was noted to be within the vitreous cavity prior to being turned on to an infusion pressure of 30 mmHg. The light pipe Micro vitrector was introduced into the eye under visualization with the BIOM viewing system. A macula-involving rhegmatogenous retinal detachment was noted from approximately 11 o'clock to 3 o'clock. The flute extended posteriorly into the superior macula. An old defect was noted at approximately 11 o'clock with two subsequent defects, one being a horseshoe defect at 12 o'clock and another small hole at approximately 12:30. A careful core and peripheral shave vitrectomy were performed with the assistance of scleral depression. Great care was taken to relieve all traction from the aforementioned defects. Following vitrectomy, the endo cautery was used to jose eduardo all defects. Additionally, a posterior drainage retinotomy was created supratemporally. This was subsequently opened with use of the Micro vitrector. An air-fluid exchange was performed, which allowed for complete flattening of the retina. Following the air-fluid exchange, Endolaser was utilized to barricade the posterior sclerotomy as well as the aforementioned defect with 3 to 5 confluent rows of laser. Additionally, a cerclage was placed in the typical fashion with sparing of the 3 and 9 o'clock meridians. Following Endolaser, the flute needle was reintroduced into the eye to remove any residual subretinal fluid. Subsequently, an air-gas exchange was performed with 15% SF6. The cannulas were sequentially removed, and superior two sclerotomies were sutured with 8-0 Vicryl suture. The subconjunctival Ancef and Kenalog were injected. The wire lid speculum was removed, followed by application of TobraDex ophthalmic ointment and light patch and shield. The patient tolerated the procedure well and was taken to Outpatient Recovery in good condition. Job ID: [id number]
== END 2019-01-24 21:32 | disposition home or self-care (01) ==
LOC: SDC 15:40
PROVIDERS: ATTEND Ophthalmology Retina Specialist
PROC: 08T43ZZ Resection of Right Vitreous, Percutaneous Approach (ICD-10-PCS; principal; 2019-01-24)
PROC: 08QE3ZZ Repair Right Retina, Percutaneous Approach (ICD-10-PCS; 2019-01-24)
DX: H33.021 Retinal detachment with multiple breaks, right eye (principal); Z98.41 Cataract extraction status, right eye; Z98.42 Cataract extraction status, left eye; Z96.1 Presence of intraocular lens; Z88.0 Allergy status to penicillin
CPT/HCPCS: J0171; J2250; J3010

== ENCOUNTER 2019-03-24 13:03 | Day surgery (SDC) | payer MEDICARE, OTHER ==
[2019-03-23 13:20] VITALS: BMI 24.0
[~2019-03-24 13:03] MED LIST: Fluorouracil 100 MG, Enoxaparin Sodium 25 MG, EPINEPHrine 0.3 MG in Ophthalmic Irrigati... IRR SCH
[2019-03-24] MEDS ORDERED: Maxitrol 0.1% Opth Oint 3.5 GM TUBE ONE (13:40)
[2019-03-24] MEDS ORDERED: Ondansetron PF 4 MG/2 ML Vial ONE (13:40)
[2019-03-24] MEDS ORDERED: PROPOFOL 200 MG/20 ML VIAL ONE (13:40)
[2019-03-24] MEDS ORDERED: Lidocaine 1% PF 5 ML VIAL ONE (13:40)
[2019-03-24] MEDS ORDERED: diphenhydrAMINE 50 MG/ML VIAL ONE (13:40)
[2019-03-24] MEDS ORDERED: CEFAZOLIN 1 GM VIAL ONE (13:40)
[2019-03-24] MEDS ORDERED: ePHEDrine/0.9% NaCl/PF SYRINGE 50 mg/10 ml ONE (13:40)
[2019-03-24] MEDS ORDERED: Bupivacaine PF 0.75% SDV 10 ML ONE (13:40)
[2019-03-24] MEDS ORDERED: Lidocaine 4% PF 5 ML AMP ONE (13:40)
[2019-03-24] MEDS ORDERED: Dexamethasone 20 MG/5 ML VIAL ONE (13:40)
[2019-03-24] MEDS ORDERED: Triamcinolone 40 MG/ML VIAL ONE (13:40)
[2019-03-24] MEDS ORDERED: Cyclopentolate 1% Opth Drop 2 ML BOT FS SCH (14:27)
[2019-03-24] MEDS ORDERED: Phenylephrine 2.5% Ophth Soln 5 ML BOT FS SCH (14:27)
[2019-03-24] MEDS ORDERED: Cyclopentolate 1% Opth Drop 2 ML BOT ONE ×2 (14:33)
[2019-03-24] MEDS ORDERED: Phenylephrine 2.5% Ophth Soln 5 ML BOT ONE (14:33)
[2019-03-24] MEDS ORDERED: Fentanyl 100 MCG/2 ML VIAL ONE ×2 (16:15→17:42)
[2019-03-24] MEDS ORDERED: Midazolam HCl 2 mg/2 ml Vial ONE (16:15)
[2019-03-24] MEDS ORDERED: Labetalol HCl 100 MG/20 ML VIAL ONE (18:24)
--- NOTE | 2019-03-25 01:03 | OP ---
DATE OF PROCEDURE: 03/24/2019 PREOPERATIVE DIAGNOSIS: Rhegmatogenous and tractional retinal detachment, right eye. POSTOPERATIVE DIAGNOSIS: Rhegmatogenous and tractional retinal detachment, right eye. PROCEDURE PERFORMED: Complex retinal detachment repair, right eye. ANESTHESIA: General endotracheal anesthesia. DESCRIPTION OF PROCEDURE: The patient was identified in the preoperative holding area. Appropriate informed consent for the planned surgical procedure on right eye had been obtained. The patient was transported to the operative suite. Appropriate cardiopulmonary monitoring was established. General endotracheal anesthesia was initiated. Retrobulbar block was placed. The patient was prepped and draped in usual sterile manner for ophthalmic surgery. Right eye lid speculum was placed in the right eye. A 360 conjunctival peritomy was created by sharp dissection with Ministerio scissors. The rectus muscles were looped on 2-0 silk ties and a 42 band was encircled around the eye and ligated end-to-end superotemporally with 3083 sleeve. Buckle was fixated in the oblique quadrants using 5-0 Mersilene suture. Trocars were placed supratemporally, inferotemporally, and supranasally. Infusion line was placed inferotemporally. Light pipe and vitreous cutter inserted into the eye. Core vitrectomy was performed. Residual vitreous was trimmed from the periphery and the inferior star fold was identified. The scar tissue was elevated with a pick and peeled across the star fold. Posterior drainage retinotomy was created and a complete air-fluid exchange was performed. Inferior retina flattened out well on the buckle. Laser was placed 360 posterior to the previously placed laser. Silicone oil was infused into the eye. Sclerotomy was closed. The optic nerve was noted to be perfused at the end of the case. The conjunctiva was closed with 6-0 plain gut suture. Retrobulbar Kenalog and subconjunctival Ancef were placed. Antibiotic ointment was placed. The eye was patched and shielded. The patient was taken to postoperative recovery unit in good condition, having suffered no immediate perioperative complications. The patient was instructed to keep patch and shield on, avoid lifting or bending, followup appointment with Dr. Lawson. Job ID: [id number]
== END 2019-03-24 20:15 | disposition home or self-care (01) ==
LOC: SDC 13:03
PROVIDERS: ATTEND Ophthalmology Retina Specialist
PROC: 08T43ZZ Resection of Right Vitreous, Percutaneous Approach (ICD-10-PCS; principal; 2019-03-24)
DX: H33.41 Traction detachment of retina, right eye (principal); H33.001 Unspecified retinal detachment with retinal break, right eye; Z88.0 Allergy status to penicillin
CPT/HCPCS: C1814; J0171; J0690; J1100; J1200; J1650; J2001; J2250; J2405; J2704; J3010; J3301; J3490; J9190

== ENCOUNTER 2019-06-30 08:49 | Day surgery (SDC) | payer MEDICARE, OTHER ==
[2019-06-29 08:52] VITALS: BMI 24.0
[~2019-06-30 08:49] MED LIST changes: +Fentanyl 100 MCG/2 ML VIAL ONE; +Midazolam HCl 2 mg/2 ml Vial ONE; +PROPOFOL 20 ML ONE
[2019-06-30] MEDS ORDERED: Phenylephrine 2.5% Ophth Soln 5 ML BOT ONE (09:18)
[2019-06-30] MEDS ORDERED: Cyclopentolate 1% Opth Drop 2 ML BOT ONE (09:18)
[2019-06-30] MEDS ORDERED: Bupivacaine PF 0.75% SDV 10 ML ONE (10:13)
[2019-06-30] MEDS ORDERED: Maxitrol 0.1% Opth Oint 3.5 GM TUBE ONE (10:13)
[2019-06-30] MEDS ORDERED: PROPOFOL 200 MG/20 ML VIAL ONE (10:13)
[2019-06-30] MEDS ORDERED: Triamcinolone 40 MG/ML VIAL ONE (10:13)
[2019-06-30] MEDS ORDERED: Lidocaine 4% PF 5 ML AMP ONE (10:13)
[2019-06-30] MEDS ORDERED: CEFAZOLIN 1 GM VIAL ONE (10:13)
[2019-06-30] MEDS ORDERED: Enoxaparin Sodium 30 MG/0.3 ML SYRINGE ONE (10:13)
[2019-06-30] MEDS ORDERED: Lidocaine 1% PF 5 ML VIAL ONE (10:13)
--- NOTE | 2019-07-01 14:00 | OP ---
DATE OF PROCEDURE: 06/30/2019 PREOPERATIVE DIAGNOSIS: Vitreous opacification, right eye. POSTOPERATIVE DIAGNOSIS: Vitreous opacification, right eye. PROCEDURE: Pars plana vitrectomy, membrane peel, right eye. ANESTHESIA: Local with monitored anesthesia care. PROCEDURE IN DETAIL: The patient was identified in the preoperative holding area. Appropriate informed consent for the planned surgical procedure on the right eye had been obtained. The patient was transported to the operative suite where appropriate cardiopulmonary monitoring was established. Local anesthesia obtained using retrobulbar modified van Lint lid block using 50:50 mixture of 4% lidocaine and 0.75% bupivacaine. The patient was prepped and draped in usual sterile manner for ophthalmic surgery on the right eye. Lid speculum was placed in the right eye. A 25-gauge trocar was placed in the conjunctiva and sclera supratemporally, inferotemporally, and supranasally. Infusion line was placed inferotemporally. Light pipe and vitreous cutter were inserted into the eye. Core vitrectomy was performed. Viscous fluid removal device was inserted into the eye and silicone oil was removed. The retina was examined carefully and no holes, breaks, or tears or elevated retina was noted. Sclerotomy suture was closed with 6-0 plain gut suture. Retrobulbar Kenalog and subconjunctival Ancef were placed. Antibiotic ointment was placed and the eye was patched and shielded. The patient was taken to postop recovery unit in good condition, having suffered no immediate perioperative complications. The patient was instructed to keep patch shield on, avoid lifting or bending, followup appointment with Dr. Lawson. Job ID: [id number]
== END 2019-06-30 12:00 | disposition home or self-care (01) ==
LOC: SDC 08:49
PROVIDERS: ATTEND Ophthalmology Retina Specialist
PROC: 08T43ZZ Resection of Right Vitreous, Percutaneous Approach (ICD-10-PCS; principal; 2019-06-30)
PROC: 08NE3ZZ Release Right Retina, Percutaneous Approach (ICD-10-PCS; 2019-06-30)
DX: H43.391 Other vitreous opacities, right eye (principal); Z79.899 Other long term (current) drug therapy; Z88.0 Allergy status to penicillin
CPT/HCPCS: J0171; J0690; J1650; J2001; J2250; J2704; J3010; J3301; J3490; J9190

== ENCOUNTER 2022-02-04 09:06 | Outpatient (CLI) | payer MEDICARE, OTHER | END 2022-02-04 09:07 | disposition home or self-care (01) | LOC: BICMAMMO 09:06 | PROVIDERS: ATTEND Obstetrics & Gynecology | DX: N63.21 Unspecified lump in the left breast, upper outer quadrant (principal) | CPT/HCPCS: 76642; 77066; G0279 ==

== ENCOUNTER 2022-11-16 09:07 | Day surgery (SDC) | payer MEDICARE ==
[2022-11-16] MEDS ORDERED: EPINEPHrine 0.3 MG in Ophthalmic Irrigation Solution 500 ML IRR SCH (09:15)
[2022-11-16] MEDS ORDERED: PHENYLephrine 2.5% Ophth Soln 15 ml Bottle ONE (09:16)
[2022-11-16] MEDS ORDERED: Cyclopentolate 0.5% Opth Drops 15 ML BOT ONE (09:17)
[2022-11-16] MEDS ORDERED: Cyclopentolate W/ Phenylephrin 40 DROP/2 ML BOT ONE (09:18)
[2022-11-16] MEDS ORDERED: fentaNYL 50 mcg/mL 1 mL Vial ONE (10:25)
[2022-11-16] MEDS ORDERED: Lidocaine 1% (PF) 30 ML VIAL ONE (10:41)
[2022-11-16] MEDS ORDERED: Triamcinolone 40 MG/ML VIAL ONE (10:59)
[2022-11-16] MEDS ORDERED: Lidocaine 4% PF 5 ML AMP ONE (10:59)
[2022-11-16] MEDS ORDERED: Cyclopentolate 2% Opth Drop 15 ML BOT ONE (10:59)
[2022-11-16] MEDS ORDERED: Lidocaine 1% PF 5 ML VIAL ONE (10:59)
[2022-11-16] MEDS ORDERED: PROPOFOL 200 MG/20 ML VIAL ONE (10:59)
[2022-11-16] MEDS ORDERED: CEFAZOLIN 1 GM VIAL ONE (10:59)
[2022-11-16] MEDS ORDERED: Bupivacaine 0.75% 10 ML VIAL ONE (10:59)
== END 2022-11-16 12:30 | disposition home or self-care (01) ==
LOC: SDC 09:07
PROC: 08T53ZZ Resection of Left Vitreous, Percutaneous Approach (ICD-10-PCS; principal; 2022-11-16)
DX: H33.002 Unspecified retinal detachment with retinal break, left eye (principal); Z88.0 Allergy status to penicillin
CPT/HCPCS: 67025; 67108; J3010; J0171; J0690; J2001; J2704; J3301; J3490

== ENCOUNTER 2024-02-16 10:06 | Outpatient (CLI) | payer MEDICARE ==
[2024-02-16 13:06] LABS: #Basophils 0.04 10x3/uL (0.0-0.2); %Basophils 0.7 % (0.0-1.0); %Eosinophils 5.8 % (0.0-10.0); %Lymphocytes 30.9 % (21.0-51.0); %Monocytes 9.1 % (0.0-10.0); %Neutrophils 53.2 % (42.0-75.0); Hematocrit 35.5 % (36.0-47.0); Hemoglobin 11.6 g/dL (12.0-16.0); Mean Corpuscular HGB CONC 32.7 g/dL (32.0-36.0); Mean Corpuscular Hemoglobin 30.1 pg (27.0-31.0); Mean Corpuscular Volume 92.2 fL (78.0-98.0); Mean Platelet Volume 9.2 fL (7.4-10.4); Platelet Count 256 10x3/uL (130-400); RBC Distribution Width 13.3 % (11.5-14.5); Red Blood Cell (RBC) Count 3.85 mill/uL (4.20-5.40)
[2024-02-16 13:18] LABS: Anion Gap 10 mmol/L (10-20); BUN (Urea Nitrogen) 13 mg/dL (9.8-20.1); Calc. Creatinine Clearance 0 mL/min (70-130); Calcium 9.7 mg/dL (7.8-10.44); Carbon Dioxide 27 mmol/L (23-31); Chloride 101 mmol/L (98-107); Estimated GFR 86; Glucose 90 mg/dL (83-110); Potassium 4.4 mmol/L (3.5-5.1); Prothrombin Time 12.8 sec (12.0-14.7); Sodium 134 mmol/L (136-145)
== END 2024-02-16 10:07 | disposition home or self-care (01) ==
LOC: LABBT 10:06
PROVIDERS: ATTEND Orthopaedic Surgery
DX: Z01.818 Encounter for other preprocedural examination (principal)
CPT/HCPCS: 80048; 85025; 85610; 87081; 93005; 93010

== ENCOUNTER 2024-03-02 05:14 | Inpatient (IN) | payer MEDICARE ==
[2024-03-02] MEDS ORDERED: Tranexamic Acid 1,000 MG/10 ML VIAL ONE (06:16)
[2024-03-02] MEDS ORDERED: LevoFLOXacin D5W 500 mg (100 mL) BAG ONE (06:16)
[2024-03-02] MEDS ORDERED: Lidocaine 1% MPF 2 ML VIAL ONE (06:16)
[2024-03-02] MEDS ORDERED: Sodium Chloride 0.9% 100 ML ONE (06:17)
[2024-03-02] MEDS ORDERED: Vancomycin 1 GM/200 ML (FROZEN) BAG ONE (06:17)
[2024-03-02] MEDS ORDERED: Clindamycin/D5W 600 mg/50 ml Premix Bag ONE (06:17)
[2024-03-02] MEDS ORDERED: Propofol 1,000 MG/100 ML VIAL IV ONE (06:41)
[2024-03-02] MEDS ORDERED: diphenhydrAMINE 25 MG CAP PO PRN (06:50)
[2024-03-02] MEDS ORDERED: CEFAZOLIN 2 GM VIAL ONE (06:51)
[2024-03-02] MEDS ORDERED: fentaNYL 50 mcg/mL 1 mL Vial ONE ×3 (07:09→09:33)
[2024-03-02] MEDS ORDERED: PHENYLEPHRINE-NS 100 MCG/ML 10 ML SYRINGE ONE (07:40)
[2024-03-02] MEDS ORDERED: ePHEDrine Sulfate 50 MG/10 ML VIAL ONE (08:00)
[2024-03-02] MEDS ORDERED: Dexamethasone 20 MG/5 ML VIAL ONE (08:37)
[2024-03-02] MEDS ORDERED: Ondansetron PF 4 MG/2 ML Vial ONE (08:37)
[2024-03-02] MEDS ORDERED: Ketorolac Tromethamine 30 MG (1 mL) VIAL ONE (08:40)
[2024-03-02] MEDS ORDERED: Sodium Chloride 0.9% 250 ML 250 ML ONE (08:53)
[2024-03-02] MEDS: Aspirin 81 mg Enteric Coated Tablet PO SCH (09:00)
[2024-03-02] MEDS: Ferrous Gluconate 324 MG TAB PO SCH (09:00)
[2024-03-02] MEDS: Multivitamin W/ Minerals 1 TAB PO SCH (09:00)
[2024-03-02] MEDS: Senokot S 8.6-50 MG TAB PO SCH (09:00)
[2024-03-02] MEDS ORDERED: [UNRECOGNIZED DRUG - OTHER] TP PRN (09:23)
[2024-03-02] MEDS ORDERED: CLINDAMYCIN HCL PO SCH (09:30)
[2024-03-02] MEDS ORDERED: Clobetasol 0.05% Cream 15 gm Tube TOP PRN (09:39)
[2024-03-02] MEDS ORDERED: Clindamycin 150 MG CAP PO SCH (10:00)
[2024-03-02 11:14] VITALS: BMI 23.0
[2024-03-02] MEDS: Sodium Chloride 0.9% 1,000 ML IV SCH (11:25)
[2024-03-02] MEDS: Acetaminophen 325 MG TAB PO PRN (12:50)
[2024-03-02] MEDS ORDERED: HYDROcodone/Acetaminophen 5/325 mg Tablet PO PRN (13:17)
[2024-03-02] MEDS: traMADol HCl 50 MG TAB PO PRN (14:27)
[2024-03-02] MEDS: CEFAZOLIN 2 GM in Sodium Chloride 0.9% 100 ML IVPB SCH (14:28)
[2024-03-02] MEDS: HYDROcodone/Acetaminophen 5/325 mg Tablet PO PRN (16:12)
[2024-03-02] MEDS: Atorvastatin Calcium 20 MG TAB PO SCH (20:27)
[2024-03-02] MEDS: Vit A,C & E/Lutein/Minerals Tablet PO SCH (20:27)
[2024-03-02] MEDS ORDERED: Non-Formulary Item 1 EACH (Vit A/Vit C/Vit E/Zinc/Copper [Preservision Areds] 1 TABLET Ta PO SCH (21:00)
[2024-03-03 06:05] LABS: Hematocrit 26.2 % (36.0-47.0); Hemoglobin 8.7 g/dL (12.0-16.0); Mean Corpuscular HGB CONC 33.2 g/dL (32.0-36.0); Mean Corpuscular Hemoglobin 30.2 pg (27.0-31.0); Mean Platelet Volume 8.9 fL (7.4-10.4); Platelet Count 176 10x3/uL (130-400); RBC Distribution Width 12.8 % (11.5-14.5); Red Blood Cell (RBC) Count 2.88 mill/uL (4.20-5.40)
[2024-03-03] MEDS ORDERED: Morphine 4 MG/ML VIAL SLOW IVP PRN (08:18)
[2024-03-03] MEDS ORDERED: Non-Formulary Item 1 EACH (Losartan Potassium [Losartan Potassium] 100 MG Tablet) PO SCH (09:00)
[2024-03-03] MEDS ORDERED: FLAXSEED OIL 1000 MG PO SCH (09:00)
[2024-03-03] MEDS ORDERED: Cholecalciferol 1,000 UNITS (25 MCG) TAB PO SCH (09:00)
[2024-03-03] MEDS: Ondansetron PF 4 MG/2 ML Vial IVP PRN (09:33)
[2024-03-03] MEDS: Polyethylene Glycol 3350 17 GM Packet PO SCH (09:33)
[2024-03-03] MEDS: Losartan 25 MG TAB PO SCH (09:35)
[2024-03-03] MEDS: Calcium Carbonate 500 MG TAB PO SCH (09:35)
[2024-03-03] MEDS: Cholecalciferol 1,000 UNITS (25 MCG) TAB PO SCH (09:36)
[2024-03-03] MEDS: Promethazine HCl 25 MG/ML VIAL IM PRN (13:38)
[2024-03-03] MEDS: FLAX SEED OIL 1000 MG PO SCH (17:56)
[2024-03-04 05:02] LABS: Hematocrit 25.4 % (36.0-47.0); Hemoglobin 8.7 g/dL (12.0-16.0); Mean Corpuscular HGB CONC 34.3 g/dL (32.0-36.0); Mean Corpuscular Hemoglobin 30.4 pg (27.0-31.0); Mean Corpuscular Volume 88.8 fL (78.0-98.0); Mean Platelet Volume 8.8 fL (7.4-10.4); Platelet Count 183 10x3/uL (130-400); RBC Distribution Width 12.8 % (11.5-14.5); Red Blood Cell (RBC) Count 2.86 mill/uL (4.20-5.40)
[2024-03-04] MEDS: Zolpidem Tartrate 5 MG TAB PO PRN (20:43)
[2024-03-05 04:56] LABS: Hematocrit 24.9 % (36.0-47.0); Hemoglobin 8.7 g/dL (12.0-16.0); Mean Corpuscular HGB CONC 34.9 g/dL (32.0-36.0); Mean Corpuscular Volume 85.9 fL (78.0-98.0); Mean Platelet Volume 8.9 fL (7.4-10.4); Platelet Count 179 10x3/uL (130-400); RBC Distribution Width 12.6 % (11.5-14.5)
[2024-03-06] MEDS: traMADol HCl 50 MG TAB PO PRN (10:20)
[2024-03-06 12:02] VITALS: BP 159/76; TEMP 98
== END 2024-03-06 12:50 | disposition home or self-care (01) | DRG 470 ==
LOC: SDC 05:14 → SURG A 10:59 → SDC 15:03 → OBSVTOIN 03-04 08:26
PROVIDERS: ADMIT Orthopaedic Surgery; ATTEND Orthopaedic Surgery
PROC: 0SRB0JZ Replacement of Left Hip Joint with Synthetic Substitute, Open Approach (ICD-10-PCS; principal; 2024-03-02)
DX: M16.12 Unilateral primary osteoarthritis, left hip (principal); D62 Acute posthemorrhagic anemia; I10 Essential (primary) hypertension; E78.00 Pure hypercholesterolemia, unspecified; Z88.0 Allergy status to penicillin; Z79.899 Other long term (current) drug therapy; R11.2 Nausea with vomiting, unspecified; K59.03 Drug induced constipation
CPT/HCPCS: 36415; 72170; 85027; 96372; 96374; 96375; C1713; C1776; G0378; J1100; J1885; J1956; J2405; J2550; J2704; J3010; J3370; J3490; J7030; J7050